=== PATIENT | male | born 1995 | race American Indian/Alaskan Native ===

== ENCOUNTER 2016-07-26 19:35 | Emergency (ER) | payer MEDICAID ==
[2016-07-26 20:56] LABS: Basophils % (Auto) 0.5 % (0.0-1.8); Eosinophils % (Auto) 0.8 % (0.0-4.3); Mean Corpuscular HGB Conc 31 % (32-34); Platelet Count 245 K/mm3 (140-440); Red Blood Count 5.97 M/mm3 (3.65-5.03); Red Cell Distribution Width 16.4 % (13.2-15.2); White Blood Count 7.8 K/mm3 (4.5-11.0)
[2016-07-26 21:03] LABS: Hematocrit 40.6 % (35.5-45.6); Hemoglobin 12.5 gm/dl (11.8-15.2); Mean Corpuscular Hemoglobin 21 pg (28-32); Mean Corpuscular Volume 68 fl (84-94)
[2016-07-26 21:13] LABS: Anion Gap 21 mmol/L; BUN/Creatinine Ratio 6.36; Blood Urea Nitrogen 7 mg/dL (9-20); Carbon Dioxide 25 mmol/L (22-30); Chloride 101.1 mmol/L (98-107); Glucose 96 mg/dL (75-100); Potassium 4.2 mmol/L (3.6-5.0); Sodium 143 mmol/L (137-145)
[2016-07-26 21:43] LABS: Urine Drugs of Abuse Note Disclamer
--- NOTE | 2016-07-26 21:49 | Emergency Department Report ---
ED Psych HPI - General Chief Complaint: Psych Stated Complaint: MH EVAL Source: EMS Mode of arrival: Ambulatory Limitations: Other (Autistic) - History of Present Illness Initial Comments: 20-year-old male with a past medical history autism, bipolar, and asthma presents to the hospital complains of increasingly aggressive behavior. Patient at the bedside with his grandfather reports that he is becoming more aggressive and combative over the past week. He also has been tearing up the house, hitting his caregiver and himself. Patient has been taking his medications without improvement. Was seen by his psychiatrist Dr. Sood several days ago and no change in his medications were recommended at that time. Patient unable to give any history of present illness himself due to his underlying mental delay - Related Data Home Medications Medication Instructions Recorded Confirmed Last Taken QUEtiapine [SEROquel] 200 mg PO QAM 05/12/13 07/26/16 02/18/14 QUEtiapine [Seroquel] 300 mg PO QHS 05/12/13 07/26/16 02/18/14 cloNIDine [Catapres] 0.1 mg PO DAILY 05/12/13 07/26/16 02/18/14 cloNIDine [Catapres] 0.2 mg PO QHS 05/12/13 07/26/16 02/18/14 [place] Carbonate [Eskalith] 450 mg PO BID 09/04/13 07/26/16 02/18/14 Benztropine [Cogentin] 0.5 mg PO QAM 07/26/16 07/26/16 Unknown Benztropine [Cogentin] 0.5 mg PO QPM 07/26/16 07/26/16 Unknown Diazepam 10 mg PO QAM 07/26/16 07/26/16 Unknown Diazepam 10 mg PO QHS 07/26/16 07/26/16 Unknown Diazepam 10 mg PO QPM 07/26/16 07/26/16 Unknown Olanzapine [ZyPREXA] 20 mg PO QHS 07/26/16 07/26/16 Unknown Olanzapine [ZyPREXA] 40 mg PO QAM 07/26/16 07/26/16 Unknown Allergies Allergy/AdvReac Type Severity Reaction Status Date / Time No Known Allergies Allergy Verified 02/19/14 05:15 ED Review of Systems ROS: Stated complaint: MH EVAL Other details as noted in HPI Comment: Unobtainable due to pts medical conditions ED Past Medical Hx - Past Medical History Hx Psychiatric Treatment: Yes (bipolar, autism) Hx Asthma: Yes Additional medical history: autistic - Surgical History Past Surgical History?: No - Social History Smoking Status: Never Smoker Substance Use Type: None - Medications Home Medications: Home Medications Medication Instructions Recorded Confirmed Last Taken Type QUEtiapine [SEROquel] 200 mg PO QAM 05/12/13 07/26/16 02/18/14 History QUEtiapine [Seroquel] 300 mg PO QHS 05/12/13 07/26/16 02/18/14 History cloNIDine [Catapres] 0.1 mg PO DAILY 05/12/13 07/26/16 02/18/14 History cloNIDine [Catapres] 0.2 mg PO QHS 05/12/13 07/26/16 02/18/14 History [place] Carbonate [Eskalith] 450 mg PO BID 09/04/13 07/26/16 02/18/14 History Benztropine [Cogentin] 0.5 mg PO QAM 07/26/16 07/26/16 Unknown History Benztropine [Cogentin] 0.5 mg PO QPM 07/26/16 07/26/16 Unknown History Diazepam 10 mg PO QAM 07/26/16 07/26/16 Unknown History Diazepam 10 mg PO QHS 07/26/16 07/26/16 Unknown History Diazepam 10 mg PO QPM 07/26/16 07/26/16 Unknown History Olanzapine [ZyPREXA] 20 mg PO QHS 07/26/16 07/26/16 Unknown History Olanzapine [ZyPREXA] 40 mg PO QAM 07/26/16 07/26/16 Unknown History ED Physical Exam - General Limitations: Other - Other Other exam information: General: No limitations, patient is alert in no acute distress Head exam: Atraumatic, normocephalic Eyes exam: Normal appearance ENT: Moist mucous membrane Neck exam: Normal inspection, full range of motion, no meningismus nontender Respiratory exam: Clear to auscultation bilateral, no wheezes, rales, crackles Cardiovascular: Normal rate and rhythm, normal heart sounds Abdomen: Soft, nondistended, and nontender, with normal bowel sounds, no rebound, or guarding Extremity: Full range of motion normal inspection no deformity Back: Normal Inspection, full range of motion, no tenderness Neurologic: Alert, o cranial nerves intact, no motor or sensory deficit Skin: Warm, dry, intact ED Course Vital Signs 07/26/16 20:25 Temperature 98.5 F Pulse Rate 80 Respiratory 18 Rate Blood Pressure 146/86 O2 Sat by Pulse 98 Oximetry - Consultations Consultation #1: 07/27/16 00:40 Mental health consult was ordered several hours ago and patient was evaluated by [facility] health specialist. 1013 signed since patient is not mentally stabilize for safe discharge home and exceeds the capabilities of his family and caretakers at this time. ED Medical Decision Making - Lab Data Result diagrams: 07/26/16 20:42 07/26/16 20:42 Lab Results 07/26/16 07/26/16 07/26/16 Range/Units 20:30 20:31 20:31 WBC (4.5-11.0) K/mm3 RBC (3.65-5.03) M/mm3 Hgb (11.8-15.2) gm/dl Hct (35.5-45.6) % MCV (84-94) fl MCH (28-32) pg MCHC (32-34) % RDW (13.2-15.2) % Plt Count (140-440) K/mm3 Lymph % (Auto) (13.4-35.0) % [place] % (Auto) (0.0-7.3) % Eos % (Auto) (0.0-4.3) % Baso % (Auto) (0.0-1.8) % Lymph # (1.2-5.4) K/mm3 [place] # (0.0-0.8) K/mm3 Eos # (0.0-0.4) K/mm3 Baso # (0.0-0.1) K/mm3 Seg Neutrophils % (40.0-70.0) % Seg Neutrophils # (1.8-7.7) K/mm3 Sodium (137-145) mmol/L Potassium (3.6-5.0) mmol/L Chloride (98-107) mmol/L Carbon Dioxide (22-30) mmol/L Anion Gap mmol/L BUN (9-20) mg/dL Creatinine (0.8-1.5) mg/dL Estimated GFR ml/min BUN/Creatinine Ratio % Glucose (75-100) mg/dL Calcium (8.4-10.2) mg/dL Urine Color Straw (Yellow) Urine Turbidity Clear (Clear) Urine pH 6.0 (5.0-7.0) Ur Specific [place] 1.006 (1.003-1.030) Urine Protein <15 mg/dl (Negative) mg/dL Urine Glucose (UA) Neg (Negative) mg/dL Urine Ketones Neg (Negative) mg/dL Urine Blood Neg (Negative) Urine Nitrite Neg (Negative) Urine Bilirubin Neg (Negative) Urine Urobilinogen < 2.0 (<2.0) mg/dL Ur Leukocyte Esterase Neg (Negative) Urine WBC (Auto) < 1.0 (0.0-6.0) /HPF Urine RBC (Auto) 4.0 (0.0-6.0) /HPF Urine Opiates Screen Presumptive negative Urine Methadone Screen Presumptive negative Ur Barbiturates Screen Presumptive negative Ur Phencyclidine Scrn Presumptive negative Ur Amphetamines Screen Presumptive negative U Benzodiazepines Scrn Presumptive negative [place] 2.6 H* (0.0-1.2) mmol/L Urine Cocaine Screen Presumptive negative U Marijuana (THC) Screen Presumptive negative Drugs of Abuse Note Disclamer Plasma/Serum Alcohol (0-0.07) gm% 07/26/16 07/26/16 07/26/16 Range/Units 20:42 20:42 20:42 WBC 7.8 (4.5-11.0) K/mm3 RBC 5.97 H (3.65-5.03) M/mm3 Hgb 12.5 (11.8-15.2) gm/dl Hct 40.6 (35.5-45.6) % MCV 68 L (84-94) fl MCH 21 L (28-32) pg MCHC 31 L (32-34) % RDW 16.4 H (13.2-15.2) % Plt Count 245 (140-440) K/mm3 Lymph % (Auto) 24.0 (13.4-35.0) % [place] % (Auto) 11.9 H (0.0-7.3) % Eos % (Auto) 0.8 (0.0-4.3) % Baso % (Auto) 0.5 (0.0-1.8) % Lymph # 1.9 (1.2-5.4) K/mm3 [place] # 0.9 H (0.0-0.8) K/mm3 Eos # 0.1 (0.0-0.4) K/mm3 Baso # 0.0 (0.0-0.1) K/mm3 Seg Neutrophils % 62.8 (40.0-70.0) % Seg Neutrophils # 4.9 (1.8-7.7) K/mm3 Sodium 143 (137-145) mmol/L Potassium 4.2 (3.6-5.0) mmol/L Chloride 101.1 (98-107) mmol/L Carbon Dioxide 25 (22-30) mmol/L Anion Gap 21 mmol/L BUN 7 L (9-20) mg/dL Creatinine 1.1 (0.8-1.5) mg/dL Estimated GFR > 60 ml/min BUN/Creatinine Ratio 6.36 % Glucose 96 (75-100) mg/dL Calcium 10.0 (8.4-10.2) mg/dL Urine Color (Yellow) Urine Turbidity (Clear) Urine pH (5.0-7.0) Ur Specific [place] (1.003-1.030) Urine Protein (Negative) mg/dL Urine Glucose (UA) (Negative) mg/dL Urine Ketones (Negative) mg/dL Urine Blood (Negative) Urine Nitrite (Negative) Urine Bilirubin (Negative) Urine Urobilinogen (<2.0) mg/dL Ur Leukocyte Esterase (Negative) Urine WBC (Auto) (0.0-6.0) /HPF Urine RBC (Auto) (0.0-6.0) /HPF Urine Opiates Screen Urine Methadone Screen Ur Barbiturates Screen Ur Phencyclidine Scrn Ur Amphetamines Screen U Benzodiazepines Scrn [place] (0.0-1.2) mmol/L Urine Cocaine Screen U Marijuana (THC) Screen Drugs of Abuse Note Plasma/Serum Alcohol < 0.01 (0-0.07) gm% - Medical Decision Making Plan to continue patient's current psychiatric medications. 1013 and transfer forms have been signed. Patient is from psychiatric stabilization before he can be returned home. Awaiting acceptance and transfer. [place] level is above therapeutic range. I will hold this medication at this time. Level would need to be repeated and Lithia resumes once below the toxic level. Repeat level has been ordered for the next 2 days. - Differential Diagnosis behavior disorder, autism, bipolar, psychosis Critical Care Time: No Critical care attestation.: If time is entered above; I have spent that time in minutes in the direct care of this critically ill patient, excluding procedure time. ED Disposition Clinical Impression: Medical clearance for psychiatric admission, Autism, Bipolar disorder, Behavior disturbance, Elevated lithium level Disposition: DC/TX PSY HOSP/PSY UNIT Is pt being admited?: No Does the pt Need Aspirin: No Condition: Stable Time of Disposition: 00:49 (awaiting acceptance)
[2016-07-26 21:52] LABS: Bilirubin,Urine NEG (Negative); Blood,Urine NEG (Negative); Ketones,Urine NEG (Negative); Leukocyte Esterase,Urine NEG (Negative); Nitrite,Urine NEG (Negative); Protein,Urine <15 mg/dL mg/dL (Negative); Urobilinogen,Urine < 2.0 mg/dL (<2.0); WBC,Urine < 1.0 /HPF (0.0-6.0)
[2016-07-26] MEDS ORDERED: VALIUM PO ONE (23:04)
[2016-07-26] MEDS ORDERED: CATAPRES PO ONE (23:06)
[2016-07-27] MEDS ORDERED: TYLENOL PO PRN (01:00)
[2016-07-27] MEDS ORDERED: ALUM-MAG HYDROX-SIMETH 200-200-20MG/5ML PO PRN (01:00)
[2016-07-27] MEDS ORDERED: MILK OF MAGNESIA PO PRN (01:00)
--- NOTE | 2016-07-27 09:20 | Consultation ---
History of Present Illness - Reason for Consult Consult date: 07/27/16 Reason for consult: Mental Health Evaluation Requesting physician: KYRA SHAFFER - Chief Complaint Chief complaint: "I don't know" - History of Present Psychiatric Illness 20-year-old male with a past medical history autism, bipolar, and asthma presents to the hospital complains of increasingly aggressive behavior. Today patient is calm, but repeat my questions back to me when asked. He was sitting on the stretcher bed eating his breakfast during my assessment. Per the RN notes , patient had no behavioral issues overnight. No gestures of SI/HI's. Patient is a poor historian. ER Note 07/27/2016 - 20-year-old male with a past medical history autism, bipolar , and asthma presents to the hospital complains of increasingly aggressive behavior. Patient at the bedside with his grandfather reports that he is becoming more aggressive and combative over the past week. He also has been tearing up the house, hitting his caregiver and himself. Patient has been taking his medications without improvement. Was seen by his psychiatrist Dr. Sood several days ago and no change in his medications were recommended at that time. Patient unable to give any history of present illness himself due to his underlying mental delay Medications and Allergies Allergies Allergy/AdvReac Type Severity Reaction Status Date / Time No Known Allergies Allergy Verified 02/19/14 05:15 Home Medications Medication Instructions Recorded Confirmed Last Taken Type QUEtiapine [SEROquel] 200 mg PO QAM 05/12/13 07/26/16 02/18/14 History QUEtiapine [Seroquel] 300 mg PO QHS 05/12/13 07/26/16 02/18/14 History cloNIDine [Catapres] 0.1 mg PO DAILY 05/12/13 07/26/16 02/18/14 History cloNIDine [Catapres] 0.2 mg PO QHS 05/12/13 07/26/16 02/18/14 History [place] Carbonate [Eskalith] 450 mg PO BID 09/04/13 07/26/16 02/18/14 History Benztropine [Cogentin] 0.5 mg PO QAM 07/26/16 07/26/16 Unknown History Benztropine [Cogentin] 0.5 mg PO QPM 07/26/16 07/26/16 Unknown History Diazepam 10 mg PO QAM 07/26/16 07/26/16 Unknown History Diazepam 10 mg PO QHS 07/26/16 07/26/16 Unknown History Diazepam 10 mg PO QPM 07/26/16 07/26/16 Unknown History Olanzapine [ZyPREXA] 20 mg PO QHS 07/26/16 07/26/16 Unknown History Olanzapine [ZyPREXA] 40 mg PO QAM 07/26/16 07/26/16 Unknown History Active Meds: Active Medications Acetaminophen (Tylenol) 650 mg PO Q4HR PRN PRN Reason: Pain MILD(1-3)/Fever >100.5/HAHN Al Hydrox/Mg Hydrox/Simethicone (Alum-Mag Hydrox-Simeth 884-322-34ul/5ml) 30 ml PO Q4HR PRN PRN Reason: Indigestion Clonidine HCl (Catapres) 0.2 mg PO QHS GREG Diazepam (Valium) 10 mg PO QPM GREG Magnesium Hydroxide (Milk Of Magnesia) 30 ml PO Q12HR PRN PRN Reason: Constipation Olanzapine (Zyprexa) 10 mg PO HS GREG Quetiapine Fumarate (Seroquel) 300 mg PO QHS GREG Past psychiatric history - Past Medical History Past Medical History: other (Autistic) Past Surgical History: No surgical history - past Psychiatric treatment and history Psych: Bipolar psychiatric treatment history: Unable to obtain from patient. Unable to obtain fam psy hx from patient. - Social History Social history: lives with family Mental Status Exam - Vital signs Last Vital Signs Temp 98.5 F 07/26/16 20:25 Pulse 80 07/26/16 20:25 Resp 18 07/26/16 20:25 BP 146/86 07/26/16 20:25 Pulse Ox 98 07/26/16 20:25 - Exam Narrative exam: ROS: (-) psychosis MSE: Appearance: calm Behavior: poor eye contact Speech: regular rate and tone Mood: unable to assess Affect: flat Thought Process: unable to assess Thought Content: no gestures of SI/HI's and AVH's Motor Activity: sitting on bed Cognition: unable to assess Insight: limited Judgment: limited Results Result Diagrams: 07/26/16 20:42 07/26/16 20:42 Abnormal lab results 07/26/16 07/26/16 07/26/16 Range/Units 20:30 20:42 20:42 RBC 5.97 H (3.65-5.03) M/mm3 MCV 68 L (84-94) fl MCH 21 L (28-32) pg MCHC 31 L (32-34) % RDW 16.4 H (13.2-15.2) % [place] % (Auto) 11.9 H (0.0-7.3) % [place] # 0.9 H (0.0-0.8) K/mm3 BUN 7 L (9-20) mg/dL [place] 2.6 H* (0.0-1.2) mmol/L All other labs normal. Assessment and Plan Assessment and plan: Impression: Unspecified Mood DO. 20-year-old male with a past medical history autism, bipolar, and asthma presents to the hospital complains of increasingly aggressive behavior. Today patient is calm, but repeat my questions back to me when asked. He was sitting on the stretcher bed eating his breakfast during my assessment. Last [place] level 2.6 next scheduled lithium serum is tomorrow at 1000. No gestures of SI/HI's and AVH's. DD: R/O Bipolar Recommendation/Plan: Evaluate 1013 in 24 hours and gather more collateral information from grandmother. Monitor for lithium toxicity symptoms (N/V, diarrhea, muscle weakness/stiffness, fever, seizures, and tremors). Neuro checks Q4hrs. Modified psy mediations. [place] serum 07/28.
[2016-07-27] MEDS ORDERED: CATAPRES PO SCH (10:00)
[2016-07-27] MEDS ORDERED: NON-FORMULARY (Diazepam [Diazepam] 10 MG) PO SCH ×3 (10:00→22:00)
[2016-07-27] MEDS ORDERED: OLANZAPINE 40 MG PO SCH (10:00)
[2016-07-27] MEDS ORDERED: ESKALITH PO SCH (10:00)
[2016-07-27] MEDS ORDERED: VALIUM PO SCH ×3 (10:00→22:00)
[2016-07-27] MEDS ORDERED: NON-FORMULARY (Olanzapine [Zyprexa] 20 MG) PO SCH (13:00)
[2016-07-27] MEDS ORDERED: ATIVAN IM ONE (21:16)
[2016-07-27] MEDS ORDERED: HALDOL ONE (21:16)
[2016-07-27] MEDS ORDERED: ATIVAN ONE (21:16)
[2016-07-28] MEDS ORDERED: BENADRYL ONE (02:42)
[2016-07-28] MEDS ORDERED: HALDOL ONE ×2 (02:44→14:49)
[2016-07-28] MEDS ORDERED: ATIVAN ONE (02:45)
[2016-07-28] MEDS ORDERED: ATIVAN IV ONE (02:45)
[2016-07-28] MEDS ORDERED: BENADRYL IM ONE (03:56)
[2016-07-28] MEDS ORDERED: HALDOL IM ONE ×2 (03:57→14:48)
[2016-07-28] MEDS ORDERED: ATIVAN IV NR (04:00)
--- NOTE | 2016-07-28 09:00 | Progress Note ---
Subjective - Reason for Consult Consult date: 07/28/16 Reason for consult: Psychiatry Follow-up - Chief Complaint Chief complaint: "I don't know" 20-year-old male with a past medical history autism, bipolar, and asthma presents to the hospital complaining of increasingly aggressive behavior. Today patient is still repeating my questions (echolalia) when asked. Per the RN notes , patient was observed eating his feces overnight. Per his grandmother Juana [phone] stated that her grandson was aggressive at home (fighting) and was brought to [facility]. The patient see Dr. Sood at [facility]. No gestures of SI/HI's and AVH's. Mental Status Exam - Vital signs Last Vital Signs Temp 98 F 07/27/16 10:00 Pulse 71 07/28/16 06:27 Resp 18 07/28/16 06:27 BP 115/60 07/28/16 06:27 Pulse Ox 98 07/28/16 06:27 - Exam Narrative exam: MSE: Appearance: calm Behavior: poor eye contact Speech: regular rate and tone Mood: unable to assess Affect: flat Thought Process: unable to assess Thought Content: no gestures of SI/HI's and AVH's Motor Activity: sitting on bed Cognition: unable to assess Insight: limited Judgment: limited Assessment and Plan Impression: Unspecified Mood DO with psychotic features. 20-year-old male with a past medical history autism, bipolar, and asthma presents to the hospital complaining of increasingly aggressive behavior. Today patient is still repeating my questions (echolalia) when asked. Per the RN notes, patient was observed eating his feces overnight. Patient is currently in restraints. Psy medications were not given last night. Recommendation/Plan: Evaluate 1013 in 24 hours to determine proper dispo. Attempt to administer PO psy medications as ordered. Remove restraints when indicated.
[2016-07-28] MEDS: VALIUM PO SCH (22:35)
[2016-07-28] MEDS: COGENTIN PO SCH (22:45)
[2016-07-28] MEDS: CATAPRES PO SCH (22:52)
--- NOTE | 2016-07-29 13:50 | Progress Note ---
Subjective - Reason for Consult Consult date: 07/29/16 Reason for consult: psychiatric follow up - Chief Complaint Chief complaint: "Hi" 20-year-old male with a past medical history autism, bipolar, and asthma presents to the hospital complaining of increasingly aggressive behavior. Today patient is still repeating my questions (echolalia) when asked. Grandmother reports feeling unsafe due to the patient's recent and likely continued aggressive behavior. He was out of his room naked this morning. She wants his medications addressed. He recently started Valium and Zyprexa in April. He does not have a current prescription and this was reported to be an oversight by his psychiatrist according to his grandmother. He starts a summer program next week and has been looking forward to it but is greatly affected by two abrupt changes within 1-2 days. He finished the school year and his grandmother had emergency surgery. Mental Status Exam - Vital signs Last Vital Signs Temp 97.8 F 07/29/16 08:52 Pulse 85 07/29/16 08:52 Resp 18 07/29/16 08:52 BP 143/83 07/29/16 08:52 Pulse Ox 99 07/29/16 08:52 - Exam Narrative exam: Narrative exam: MSE: Appearance: calm Behavior: poor eye contact Speech: echolalia Mood: unable to assess Affect: flat Thought Process: unable to assess Thought Content: no gestures of SI/HI's and AVH's Motor Activity: sitting on bed Cognition: unable to assess Insight: limited Judgment: limited impulsive behavior Assessment and Plan Impression: Unspecified Mood DO with psychotic features. 20-year-old male with a past medical history autism, bipolar, and asthma presents to the hospital complaining of increasingly aggressive behavior. Recommendation/Plan: Continue 1013 for concerns with safety to others and himself. Attempt to administer PO psy medications as ordered. Remove restraints when indicated. Reorient patient to his surroundings often and keep a routine as much as possible regarding meals, visitors, sleep, and bathroom time.
[2016-07-29] MEDS: CATAPRES PO SCH (22:25)
[2016-07-29] MEDS: COGENTIN PO SCH (22:32)
[2016-07-29] MEDS: VALIUM PO SCH (22:32)
[2016-07-29] MEDS ORDERED: ATIVAN IM ONE (23:22)
--- NOTE | 2016-07-30 11:12 | Progress Note ---
Subjective - Reason for Consult Consult date: 07/30/16 Reason for consult: Psychiatry Follow-up - Chief Complaint Chief complaint: "Hello" 20-year-old male with a past medical history autism, bipolar, and asthma presents to the hospital complaining of increasingly aggressive behavior. Today patient is in the hallway being observed by security and currently not in restraints. I spoke with his grandmother and she stated that he can return home if his behavior has changed. She is concerned about his medication regimen. No gestures of SI/HI's and AVH's. No prn medication given for agitation or physical aggression overnight. Mental Status Exam - Vital signs Last Vital Signs Temp 98.4 F 07/29/16 22:22 Pulse 53 L 07/29/16 22:22 Resp 18 07/30/16 08:19 BP 129/73 07/29/16 22:25 Pulse Ox 99 07/30/16 08:19 - Exam Narrative exam: MSE: Appearance: calm Behavior: poor eye contact, patient can be impulsive Speech: echolalia Mood: unable to assess Affect: flat Thought Process: unable to assess Thought Content: no gestures of SI/HI's and AVH's Motor Activity: sitting on bed Cognition: unable to assess Insight: limited Judgment: limited Assessment and Plan Impression: Unspecified Mood DO with psychotic features. 20-year-old male with a past medical history autism, bipolar, and asthma presents to the hospital complaining of increasingly aggressive behavior. Today patient is in the hallway being observed by security and currently not in restraints. I spoke with his grandmother and she stated that he can return home if his behavior has changed. lithium 0.2 07/29. Recommendation/Plan: Evaluate 1013 in 24 hours. Attempt to administer PO psy medications as ordered. Remove restraints when indicated. Reorient patient to his surroundings often and keep a routine as much as possible regarding meals, visitors, sleep, and bathroom time. Patient suppose to start summer camp next.
[2016-07-30] MEDS ORDERED: HALDOL IM ONE (17:55)
[2016-07-30] MEDS: VALIUM PO SCH (22:23)
[2016-07-30] MEDS: CATAPRES PO SCH (22:23)
[2016-07-30] MEDS: COGENTIN PO SCH (22:23)
--- NOTE | 2016-07-31 10:46 | Progress Note ---
Subjective - Reason for Consult Consult date: 07/31/16 Reason for consult: Psychiatry Follow-up - Chief Complaint Chief complaint: "Hi" 20-year-old male with a past medical history autism, bipolar, and asthma presents to the hospital complaining of increasingly aggressive behavior. Today patient is calm and not saying much today. Per the RN note, patient had no behavioral issues overnight. Patient took his medications last night and no gestures of SI/HI's and AVH's. Mental Status Exam - Vital signs Last Vital Signs Temp 98 F 07/30/16 21:00 Pulse 88 07/30/16 22:23 Resp 16 07/30/16 21:00 BP 142/88 07/30/16 22:23 Pulse Ox 99 07/30/16 21:00 - Exam Narrative exam: MSE: Appearance: calm Behavior: poor eye contact, patient can be impulsive Speech: echolalia Mood: unable to assess Affect: flat Thought Process: unable to assess Thought Content: no gestures of SI/HI's and AVH's Motor Activity: sitting on bed Cognition: unable to assess Insight: limited Judgment: limited Assessment and Plan Impression: Unspecified Mood DO with psychotic features. 20-year-old male with a past medical history autism, bipolar, and asthma presents to the hospital complaining of increasingly aggressive behavior. 20-year-old male with a past medical history autism, bipolar, and asthma presents to the hospital complaining of increasingly aggressive behavior. Today patient is calm and not saying much today. Per the RN note, patient had no behavioral issues overnight. Grandmother will pecan picker patient Natividad Hines [phone]. Recommendation/Plan: Rescind 1013. Patient can follow-up with his psychiatrist. Continue current medication regimen.
[2016-07-31 12:10] VITALS: BP 138/78
--- NOTE | 2016-07-31 12:40 | Emergency Department Report ---
Blank Doc - Documentation Documentation: Patient has been reevaluated by mental health. Recommendation is to rescind the 1013. Patient will be discharged home at this time to follow up with his outpatient psychiatrist.
== END 2016-07-31 15:28 | disposition home or self-care (01) ==
LOC: ED 19:35 → EEVIPCON 19:35 → ED 07-31 15:28
DX: F31.9 Bipolar disorder, unspecified (principal); F91.9 Conduct disorder, unspecified; F84.0 Autistic disorder; R78.89 Finding of other specified substances, not normally found in blood; J45.909 Unspecified asthma, uncomplicated
CPT/HCPCS: 36415; 80048; 80178; 80307; 81001; 82550; 85025; 96372; 99284; G0480; J1200; J1630; J2060; 80320

== ENCOUNTER 2016-08-15 19:43 | Emergency (ER) | payer MEDICAID ==
[2016-08-15] MEDS ORDERED: HALDOL ONE (19:56)
[2016-08-15] MEDS ORDERED: HALDOL IM ONE (20:06)
--- NOTE | 2016-08-15 20:08 | Emergency Department Report ---
ED Psych HPI - General Chief Complaint: Psych Stated Complaint: 1013 Time Seen by Provider: 08/15/16 20:04 Source: family Mode of arrival: Ambulatory Limitations: Other (autistic) - History of Present Illness -: Sudden (today; here < 1 m ago) Context: other (lives w grandmother who gives him his meds; she says he is taking them; denies that he could have gotten drugs) Treatments Prior to Arrival: none If Self Harm: other (attacking family; psychosis today) - Related Data Home Medications Medication Instructions Recorded Confirmed Last Taken QUEtiapine [SEROquel] 200 mg PO QAM 05/12/13 07/26/16 02/18/14 QUEtiapine [Seroquel] 300 mg PO QHS 05/12/13 07/26/16 02/18/14 cloNIDine [Catapres] 0.1 mg PO DAILY 05/12/13 07/26/16 02/18/14 cloNIDine [Catapres] 0.2 mg PO QHS 05/12/13 07/26/16 02/18/14 [place] Carbonate [Eskalith] 450 mg PO BID 09/04/13 07/26/16 02/18/14 Benztropine [Cogentin] 0.5 mg PO QAM 07/26/16 07/26/16 Unknown Benztropine [Cogentin] 0.5 mg PO QPM 07/26/16 07/26/16 Unknown Diazepam 10 mg PO QAM 07/26/16 07/26/16 Unknown Diazepam 10 mg PO QHS 07/26/16 07/26/16 Unknown Diazepam 10 mg PO QPM 07/26/16 07/26/16 Unknown Olanzapine [ZyPREXA] 20 mg PO QHS 07/26/16 07/26/16 Unknown Olanzapine [ZyPREXA] 40 mg PO QAM 07/26/16 07/26/16 Unknown Allergies Allergy/AdvReac Type Severity Reaction Status Date / Time No Known Allergies Allergy Verified 02/19/14 05:15 ED Review of Systems ROS: Stated complaint: 1013 Other details as noted in HPI Comment: All other systems reviewed and negative Constitutional: no symptoms reported Eyes: as per HPI ENT: as per HPI Respiratory: no symptoms reported Cardiovascular: as per HPI Endocrine: no symptoms reported Gastrointestinal: as per HPI Genitourinary: as per HPI Musculoskeletal: as per HPI Skin: as per HPI Neurological: as per HPI Psychiatric: anxiety Hematological/Lymphatic: as per HPI ED Past Medical Hx - Past Medical History Previous Medical History?: Yes Hx Hypertension: No Hx CVA: No Hx Heart Attack/AMI: No Hx Congestive Heart Failure: No Hx Diabetes: No Hx Deep Vein Thrombosis: No Hx Pulmonary Embolism: No Hx GERD: No Hx Liver Disease: No Hx Renal Disease: No Hx of Cancer: No Hx Sickle Cell Disease: No Hx Arthritis: No Hx Headaches / Migraines: No Hx Seizures: No Hx Kidney Stones: No Hx Psychiatric Treatment: Yes (bipolar, autism) Hx Asthma: Yes Hx COPD: No Hx Tuberculosis: No Hx Dementia: No Hx HIV: No Additional medical history: autistic - Surgical History Past Surgical History?: No - Social History Smoking Status: Never Smoker Substance Use Type: None - Medications Home Medications: Home Medications Medication Instructions Recorded Confirmed Last Taken Type QUEtiapine [SEROquel] 200 mg PO QAM 05/12/13 07/26/16 02/18/14 History QUEtiapine [Seroquel] 300 mg PO QHS 05/12/13 07/26/16 02/18/14 History cloNIDine [Catapres] 0.1 mg PO DAILY 05/12/13 07/26/16 02/18/14 History cloNIDine [Catapres] 0.2 mg PO QHS 05/12/13 07/26/16 02/18/14 History [place] Carbonate [Eskalith] 450 mg PO BID 09/04/13 07/26/16 02/18/14 History Benztropine [Cogentin] 0.5 mg PO QAM 07/26/16 07/26/16 Unknown History Benztropine [Cogentin] 0.5 mg PO QPM 07/26/16 07/26/16 Unknown History Diazepam 10 mg PO QAM 07/26/16 07/26/16 Unknown History Diazepam 10 mg PO QHS 07/26/16 07/26/16 Unknown History Diazepam 10 mg PO QPM 07/26/16 07/26/16 Unknown History Olanzapine [ZyPREXA] 20 mg PO QHS 07/26/16 07/26/16 Unknown History Olanzapine [ZyPREXA] 40 mg PO QAM 07/26/16 07/26/16 Unknown History ED Physical Exam - General Limitations: Altered Mental Status General appearance: anxious - Head Head exam: Present: atraumatic - Eye Eye exam: Present: normal appearance - ENT ENT exam: Present: mucous membranes moist - Neck Neck exam: Present: normal inspection - Respiratory Respiratory exam: Present: normal lung sounds bilaterally - Cardiovascular Cardiovascular Exam: Present: regular rate - GI/Abdominal GI/Abdominal exam: Present: soft - Rectal Rectal exam: Present: deferred - Extremities Exam Extremities exam: Present: normal inspection - Back Exam Back exam: Present: normal inspection - Neurological Exam Neurological exam: Present: alert, CN II-XII intact, other (psychosis and combative, onset today. ) - Psychiatric Psychiatric exam: Present: agitated, anxious. Absent: normal affect, normal mood, depressed, flat affect, manic - Skin Skin exam: Present: warm, dry, intact, normal color. Absent: rash ED Course - Reevaluation(s) Reevaluation #1: 08/15/16 20:24 lives w grandparents meds monitored no drugs per fam combative today hitting family fighting on admit to er. medicated per Dr. Kendrick medical clearance and psych consult Pt Dr. Villela Reevaluation #2: 08/16/16 01:32 vss resting quietly ns infusing urine p plan recheck labs mhe eval w placement ED Medical Decision Making - Lab Data Result diagrams: 08/15/16 19:59 08/15/16 19:59 - Medical Decision Making labs noted monitored by grandparents they give him his meds no missed doses no drug hx no trauma vss nad Critical care attestation.: If time is entered above; I have spent that time in minutes in the direct care of this critically ill patient, excluding procedure time. ED Disposition Clinical Impression: Autism, Psychosis Disposition: DC/TX-65 PSY HOSP/PSY UNIT Is pt being admited?: No Does the pt Need Aspirin: No Condition: Stable
[2016-08-15 20:33] LABS: Basophils % (Auto) 0.6 % (0.0-1.8); Hematocrit 37.1 % (35.5-45.6); Hemoglobin 11.5 gm/dl (11.8-15.2); Mean Corpuscular HGB Conc 31 % (32-34); Platelet Count 207 K/mm3 (140-440); Red Blood Count 5.54 M/mm3 (3.65-5.03); Red Cell Distribution Width 16.3 % (13.2-15.2); White Blood Count 6.8 K/mm3 (4.5-11.0)
[2016-08-15 20:34] LABS: Mean Corpuscular Hemoglobin 21 pg (28-32); Mean Corpuscular Volume 67 fl (84-94)
[2016-08-15 20:53] LABS: BUN/Creatinine Ratio 6.36; Blood Urea Nitrogen 7 mg/dL (9-20); Calcium 9.2 mg/dL (8.4-10.2); Carbon Dioxide 23 mmol/L (22-30); Glucose 154 mg/dL (75-100)
[2016-08-15 20:54] LABS: Anion Gap 16 mmol/L; Chloride 103.4 mmol/L (98-107); Potassium 3.7 mmol/L (3.6-5.0); Sodium 139 mmol/L (137-145)
[2016-08-15 20:56] LABS: Alanine Aminotransferase 12 units/L (7-56); Albumin 4.1 g/dL (3.9-5); Albumin/Globulin Ratio 1.7 %; Alkaline Phosphatase 93 units/L (35-129); Total Protein 6.5 g/dL (6.3-8.2)
[2016-08-15] MEDS ORDERED: NACL 0.9% 1000 ML 1,000 ML IV ONE (20:56)
[2016-08-15 21:00] LABS: Bilirubin,Direct < 0.2 mg/dL (0-0.2); Bilirubin,Indirect 0.1 mg/dL
[2016-08-16 02:17] LABS: Urine Drugs of Abuse Note Disclamer
[2016-08-16 02:26] LABS: Bacteria,Urine 1+ /HPF (Negative); Bilirubin,Urine NEG (Negative); Blood,Urine NEG (Negative); Ketones,Urine NEG (Negative); Leukocyte Esterase,Urine NEG (Negative); Nitrite,Urine NEG (Negative); Protein,Urine <15 mg/dL mg/dL (Negative); RBC,Urine < 1.0 /HPF (0.0-6.0); Urobilinogen,Urine < 2.0 mg/dL (<2.0); WBC,Urine < 1.0 /HPF (0.0-6.0)
[2016-08-16 02:53] LABS: Anion Gap 14 mmol/L; BUN/Creatinine Ratio 7.77; Blood Urea Nitrogen 7 mg/dL (9-20); Carbon Dioxide 24 mmol/L (22-30); Chloride 107.2 mmol/L (98-107); Creatine Kinase 299 units/L (55-170); Glucose 118 mg/dL (75-100); Potassium 3.7 mmol/L (3.6-5.0); Sodium 141 mmol/L (137-145)
--- NOTE | 2016-08-16 13:00 | Consultation ---
History of Present Illness - Reason for Consult Consult date: 08/16/16 Reason for consult: aggression Medications and Allergies Allergies Allergy/AdvReac Type Severity Reaction Status Date / Time No Known Allergies Allergy Verified 02/19/14 05:15 Home Medications Medication Instructions Recorded Confirmed Last Taken Type QUEtiapine [SEROquel] 200 mg PO QAM 05/12/13 08/16/16 02/18/14 History QUEtiapine [Seroquel] 300 mg PO QHS 05/12/13 08/16/16 02/18/14 History cloNIDine [Catapres] 0.1 mg PO DAILY 05/12/13 08/16/16 02/18/14 History cloNIDine [Catapres] 0.2 mg PO QHS 05/12/13 08/16/16 02/18/14 History [place] Carbonate [Eskalith] 450 mg PO BID 09/04/13 08/16/16 02/18/14 History Benztropine [Cogentin] 0.5 mg PO QAM 07/26/16 08/16/16 Unknown History Benztropine [Cogentin] 0.5 mg PO QPM 07/26/16 08/16/16 Unknown History Diazepam 10 mg PO QAM 07/26/16 08/16/16 Unknown History Diazepam 10 mg PO QHS 07/26/16 08/16/16 Unknown History Diazepam 10 mg PO QPM 07/26/16 08/16/16 Unknown History Olanzapine [ZyPREXA] 20 mg PO QHS 07/26/16 08/16/16 Unknown History Olanzapine [ZyPREXA] 40 mg PO QAM 07/26/16 08/16/16 Unknown History Active Meds: Active Medications Clonidine HCl (Catapres) 0.1 mg PO DAILY [facility] Stop: 08/20/16 09:59 Clonidine HCl (Catapres) 0.2 mg PO HS [facility] Stop: 08/20/16 21:59 Quetiapine Fumarate (Seroquel) 300 mg PO QHS [facility] Stop: 08/20/16 21:59 Quetiapine Fumarate (Seroquel) 200 mg PO DAILY [facility] Mental Status Exam - Vital signs Last Vital Signs Temp 98.7 F 08/16/16 09:19 Pulse 63 08/16/16 09:19 Resp 16 08/16/16 09:21 BP 120/70 08/16/16 09:19 Pulse Ox 100 08/16/16 09:21 Results Result Diagrams: 08/15/16 19:59 08/16/16 02:18 Abnormal lab results 08/15/16 08/15/16 08/15/16 Range/Units 19:59 19:59 20:17 RBC 5.54 H (3.65-5.03) M/mm3 Hgb 11.5 L (11.8-15.2) gm/dl MCV 67 L (84-94) fl MCH 21 L (28-32) pg MCHC 31 L (32-34) % RDW 16.3 H (13.2-15.2) % Butts % (Auto) 7.6 H (0.0-7.3) % Seg Neutrophils % 72.6 H (40.0-70.0) % Chloride (98-107) mmol/L BUN 7 L (9-20) mg/dL Glucose 154 H (75-100) mg/dL Total Creatine Kinase 332 H (55-170) units/L 08/16/16 Range/Units 02:18 RBC (3.65-5.03) M/mm3 Hgb (11.8-15.2) gm/dl MCV (84-94) fl MCH (28-32) pg MCHC (32-34) % RDW (13.2-15.2) % Butts % (Auto) (0.0-7.3) % Seg Neutrophils % (40.0-70.0) % Chloride 107.2 H (98-107) mmol/L BUN 7 L (9-20) mg/dL Glucose 118 H (75-100) mg/dL Total Creatine Kinase 299 H (55-170) units/L All other labs normal. Assessment and Plan Assessment and plan: CHIEF COMPLAINT IN PATIENTS WORDS: HISTORY OF PRESENT ILLNESS REQUIRING ADMISSION TO INPATIENT LEVEL OF CARE: (Describe the onset of Illness, Intensity of Symptoms, and Circumstances Leading to Admission) This is a 20 year-old domiciled male with past psychiatric history of autism spectrum disorder who now presents to the ER after recent aggression towards his family. Patient was last seen in the ER several weeks ago due to reported lithium toxicity. He was here for several days while his lithium level was normalized. On review of medical records to his lithium level was 0.7. Patient is mostly nonverbal and was unable to provide any information during this assessment. All information was gathered from review of medical record and past medical records. On examination, patient is in hospital gown and disengaged with the interviewer. He was sitting on the stretcher during my examination today. PSYCHIATRIC REVIEW OF SYSTEMS: Substance: None noted Depression: Unable to obtain [place]: Unable to obtain Psychosis: Unable to obtain Anxiety/ OCD/ PTSD: Unable to obtain Suicidality: Unable to obtain Other Self-Injurious Behavior: Unable to obtain Violent/ Aggressive Behavior: Recently became aggressive towards family CURRENT MEDICATIONS: ( Psychiatric and Non-psychiatric ) Seroquel Ensign ALLERGIES: NKDA PAST PSYCHIATRIC HISTORY: ( Prior Treatment, Precipitating Factors, Diagnosis, and Course of Treatment ) Sees outpatient psychiatrist Dr. Sood PAST PSYCHIATRIC MEDICATION TRIALS: Ensign MEDICAL HISTORY: (Chronic and Acute Illnesses, Current Medical Treatment, Recent Hospitalizations) Unable to obtain HISTORY OF TRAUMA/ABUSE: Unable to obtain DRUG / ALCOHOL ABUSE HISTORY: as above Detoxification / Withdrawal: None noted SOCIAL HISTORY: (Educational Level, Employment, Support System, Interpersonal Relationships) Lives with grandmother FAMILY HISTORY: Psychiatric/Substance Abuse MENTAL STATUS EXAM: General Appearance: In hospital gown and no acute distress Sensorium/Consciousness: Clear Eye Contact: Variable Attitude / Behavior: Uncooperative Psychomotor & Musculoskeletal Activity: Appears restless Mood: Unable to obtain Affect: Unable to obtain Speech / Language: Unable to obtain Thought Processes: Unable to obtain Thought Content: Unable to obtain Perception: Unable to obtain Orientation: Unable to obtain Judgment What would you do if you smelled smoke in a crowded movie theater?: poor/impulsive Insight: poor Intelligence Vocabulary, general fund of knowledge, educational level :Unable to obtain Capacity of ADLs: Unable to assess STRENGTHS: PSYCHOSOCIAL AND ENVIRONMENTAL STRESSORS: Diagnosed with a developmental disorder limiting his ability to engage in socially appropriate ways with his family ADMITTING DIAGNOSES Psychiatric Autism spectrum disorder Evidence for the following: Rule out major depression Rule out bipolar disorder Medical: n/a INITIAL PLAN OF CARE AND TREATMENT GOALS: Reconcile home meds and restart them Observe in the ER and obtain collateral information from primary caregivers Reassess tomorrow
[2016-08-16] MEDS: CATAPRES PO SCH (14:10)
[2016-08-16] MEDS ORDERED: CATAPRES PO SCH (22:00)
[2016-08-17 07:52] VITALS: BP 121/68
[2016-08-17] MEDS: CATAPRES PO SCH (10:29)
--- NOTE | 2016-08-17 13:12 | Emergency Department Report ---
Blank Doc - Documentation Documentation: Patient has been reevaluated by psychiatry. He appears to be at his baseline after restarting his medications. Form 1013 has been rescinded. Patient is to be discharged home at this time to follow up with his outpatient psychiatrist.
--- NOTE | 2016-08-17 14:09 | Progress Note ---
Subjective - Reason for Consult Reason for consult: recent aggression Mental Status Exam - Vital signs Last Vital Signs Temp 99.0 F 08/16/16 22:00 Pulse 56 L 08/17/16 07:51 Resp 18 08/17/16 07:51 BP 121/68 08/17/16 07:51 Pulse Ox 99 08/16/16 22:00 Assessment and Plan On clinical examination today, patient remains fairly nonverbal but calm and cooperative to redirection per nursing instructions. Patient has not been acutely agitated in our milieu. It is unclear the etiology of his aggression while he was at home; however, this has not been his presentation the hospital. Patient is on several mood stabilizers notably Seroquel and lithium. His last dose of lithium is unknown; however, his lithium level is currently normal. It is the recommendation that patient should continue his Seroquel as well as his lithium upon discharge. 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 Consequently, given the fact that is the impression at the neuro developmental component of his illness is responsible for the impulsive aggression patient does not meet criteria for involuntary psychiatric hold because this aspect of his illness is not reversible, such as a mood disorder. Consequently, the 1013 will be removed and the patient will be recommended for outpatient services, such as behavioral management for people on the autism spectrum. This information will be communicated to the patient's care givers. MENTAL STATUS EXAM: General Appearance: In hospital gown and no acute distress Sensorium/Consciousness: Clear Eye Contact: Variable Attitude / Behavior: Uncooperative Psychomotor & Musculoskeletal Activity: Appears restless Mood: Unable to obtain Affect: Unable to obtain Speech / Language: Unable to obtain Thought Processes: Unable to obtain Thought Content: Unable to obtain Perception: Unable to obtain Orientation: Unable to obtain Judgment What would you do if you smelled smoke in a crowded movie theater?: poor/impulsive Insight: poor Intelligence Vocabulary, general fund of knowledge, educational level :Unable to obtain Capacity of ADLs: Unable to assess INITIAL PLAN OF CARE AND TREATMENT GOALS: Continue Seroquel upon discharge Continue his home lithium dose upon discharge Refer patient to her outpatient mental health providers It is recommended that the family engage in some form of behavioral management training for autism spectrum disorders. Such training could be found at institute such as [facility]. Rescind 101
== END 2016-08-17 18:24 | disposition home or self-care (01) ==
LOC: ED 19:43 → EEVIPCON 19:43 → ED 08-17 18:24
DX: F84.0 Autistic disorder (principal); F29 Unspecified psychosis not due to a substance or known physiological condition; F31.9 Bipolar disorder, unspecified; J45.909 Unspecified asthma, uncomplicated
CPT/HCPCS: 36415; 80048; 80074; 80178; 80307; 81001; 82550; 85025; 96360; 96372; 99284; G0480; J1630; J7030; 80320

== ENCOUNTER 2016-09-27 19:38 | Emergency (ER) | payer MEDICAID ==
[2016-09-27 20:46] LABS: Urine Drugs of Abuse Note Disclamer
[2016-09-27 20:47] LABS: Basophils % (Auto) 0.7 % (0.0-1.8); Hematocrit 38.8 % (35.5-45.6); Mean Corpuscular HGB Conc 31 % (32-34); Platelet Count 213 K/mm3 (140-440); Red Cell Distribution Width 16.2 % (13.2-15.2); White Blood Count 5.2 K/mm3 (4.5-11.0)
[2016-09-27 20:49] LABS: Mean Corpuscular Hemoglobin 21 pg (28-32); Mean Corpuscular Volume 67 fl (84-94)
[2016-09-27] MEDS ORDERED: HALDOL ONE (20:51)
[2016-09-27] MEDS ORDERED: HALDOL IM ONE (20:53)
[2016-09-27] MEDS ORDERED: ATIVAN IM ONE (20:54)
--- NOTE | 2016-09-27 20:55 | Emergency Department Report ---
ED Psych HPI - General Chief Complaint: Psych Stated Complaint: MH EVAL Time Seen by Provider: 09/27/16 20:29 Source: family, EMS Mode of arrival: Stretcher - History of Present Illness Initial Comments: Patient is a 20-year-old male postural history of autism and bipolar disorder who presents with psychotic episode. Further history from patient is a nontender palpable to the patient's psychiatric condition. History from grandwa states that he was banging his head against the wall and punching himself and throwing things at home. He was also attacking the family dog. Grandmother was unaware of what other medications he has been taking. - Related Data Previous Rx's Medication Instructions Recorded Last Taken Type Benztropine [Cogentin] 0.5 mg PO QAM #20 tablet 08/17/16 Unknown Rx Benztropine [Cogentin] 0.5 mg PO QPM #20 tablet 08/17/16 Unknown Rx [place] Carbonate [Eskalith] 450 mg PO BID #60 capsule 08/17/16 Unknown Rx QUEtiapine [SEROquel] 200 mg PO QAM #30 tablet 08/17/16 Unknown Rx QUEtiapine [SEROquel] 300 mg PO QHS #30 tablet 08/17/16 Unknown Rx cloNIDine [Catapres] 0.1 mg PO DAILY #30 tablet 08/17/16 Unknown Rx cloNIDine [Catapres] 0.2 mg PO QHS #30 tablet 08/17/16 Unknown Rx Allergies Allergy/AdvReac Type Severity Reaction Status Date / Time No Known Allergies Allergy Verified 02/19/14 05:15 ED Review of Systems ROS: Stated complaint: MH EVAL Other details as noted in HPI Comment: Unobtainable due to pts medical conditions (psychiatric condition) ED Past Medical Hx - Past Medical History Hx Hypertension: No Hx CVA: No Hx Heart Attack/AMI: No Hx Congestive Heart Failure: No Hx Diabetes: No Hx Deep Vein Thrombosis: No Hx Pulmonary Embolism: No Hx GERD: No Hx Liver Disease: No Hx Renal Disease: No Hx Sickle Cell Disease: No Hx Arthritis: No Hx Headaches / Migraines: No Hx Seizures: No Hx Kidney Stones: No Hx Psychiatric Treatment: Yes (bipolar, autism) Hx Asthma: Yes Hx COPD: No Hx Tuberculosis: No Hx Dementia: No Hx HIV: No Additional medical history: autistic - Surgical History Past Surgical History?: No - Social History Smoking Status: Never Smoker Substance Use Type: None - Medications Home Medications: Home Medications Medication Instructions Recorded Confirmed Last Taken Type Benztropine [Cogentin] 0.5 mg PO QAM #20 tablet 08/17/16 Unknown Rx Benztropine [Cogentin] 0.5 mg PO QPM #20 tablet 08/17/16 Unknown Rx [place] Carbonate [Eskalith] 450 mg PO BID #60 capsule 08/17/16 Unknown Rx QUEtiapine [SEROquel] 200 mg PO QAM #30 tablet 08/17/16 Unknown Rx QUEtiapine [SEROquel] 300 mg PO QHS #30 tablet 08/17/16 Unknown Rx cloNIDine [Catapres] 0.1 mg PO DAILY #30 tablet 08/17/16 Unknown Rx cloNIDine [Catapres] 0.2 mg PO QHS #30 tablet 08/17/16 Unknown Rx ED Physical Exam - General Limitations: Other General appearance: alert - Head Head exam: Present: atraumatic, normocephalic - Eye Eye exam: Present: normal appearance - Neck Neck exam: Present: normal inspection - Respiratory Respiratory exam: Present: normal lung sounds bilaterally - Cardiovascular Cardiovascular Exam: Present: regular rate - GI/Abdominal GI/Abdominal exam: Present: soft - Rectal Rectal exam: Present: deferred - Extremities Exam Extremities exam: Present: normal inspection - Neurological Exam Neurological exam: Present: alert, CN II-XII intact. Absent: oriented X3 - Psychiatric Psychiatric exam: Present: agitated, other (psychotic aggressive) - Skin Skin exam: Present: warm ED Course Vital Signs 09/27/16 09/27/16 19:50 19:51 Temperature 98.8 F 98.8 F Pulse Rate 86 86 Respiratory 20 20 Rate Blood Pressure 148/100 Blood Pressure 148/100 [Left] O2 Sat by Pulse 100 100 Oximetry - Reevaluation(s) Reevaluation #1: 09/27/16 22:28 We'll discuss the patient's grandmother while patient's condition will place 1013 on patient and will give patient Haldol and Ativan due to his aggressive behavior, hitting his head against the guard rail. Reevaluation #2: 09/27/16 23:49 Discussed with mental health worker patient will go to [place]. He is medically cleared. ED Medical Decision Making - Lab Data Result diagrams: 09/27/16 20:27 09/27/16 20:27 Laboratory Results - last 24 hr 09/27/16 09/27/16 09/27/16 20:27 20:27 20:27 WBC 5.2 RBC 5.80 H Hgb 12.0 Hct 38.8 MCV 67 L MCH 21 L MCHC 31 L RDW 16.2 H Plt Count 213 Lymph % (Auto) 26.8 Emmet % (Auto) 12.0 H Eos % (Auto) 1.0 Baso % (Auto) 0.7 Lymph # 1.4 Emmet # 0.6 Eos # 0.1 Baso # 0.0 Seg Neutrophils % 59.5 Seg Neutrophils # 3.1 Carbon Dioxide 24 BUN 6 L Creatinine 1.0 Estimated GFR > 60 BUN/Creatinine Ratio 6.00 Glucose 101 H Calcium 9.7 Urine Color Urine Turbidity Urine pH Ur Specific [place] Urine Protein Urine Glucose (UA) Urine Ketones Urine Blood Urine Nitrite Urine Bilirubin Urine Urobilinogen Ur Leukocyte Esterase Urine WBC (Auto) Urine RBC (Auto) U Epithel Cells (Auto) Urine Mucus Urine Opiates Screen Urine Methadone Screen Ur Barbiturates Screen Ur Phencyclidine Scrn Ur Amphetamines Screen U Benzodiazepines Scrn Urine Cocaine Screen U Marijuana (THC) Screen Drugs of Abuse Note Plasma/Serum Alcohol < 0.01 09/27/16 09/27/16 Unknown Unknown WBC RBC Hgb Hct MCV MCH MCHC RDW Plt Count Lymph % (Auto) Emm[place] % (Auto) Eos % (Auto) Baso % (Auto) Lymph # [place] # Eos # Baso # Seg Neutrophils % Seg Neutrophils # Carbon Dioxide BUN Creatinine Estimated GFR BUN/Creatinine Ratio Glucose Calcium Urine Color Yellow Urine Turbidity Clear Urine pH 6.0 Ur Specific [place] 1.010 Urine Protein <15 mg/dl Urine Glucose (UA) Neg Urine Ketones Neg Urine Blood Neg Urine Nitrite Neg Urine Bilirubin Neg Urine Urobilinogen < 2.0 Ur Leukocyte Esterase Neg Urine WBC (Auto) < 1.0 Urine RBC (Auto) < 1.0 U Epithel Cells (Auto) < 1.0 Urine Mucus Few Urine Opiates Screen Presumptive negative Urine Methadone Screen Presumptive negative Ur Barbiturates Screen Presumptive negative Ur Phencyclidine Scrn Presumptive negative Ur Amphetamines Screen Presumptive negative U Benzodiazepines Scrn Presumptive positive Urine Cocaine Screen Presumptive negative U Marijuana (THC) Screen Presumptive negative Drugs of Abuse Note Disclamer Plasma/Serum Alcohol - Medical Decision Making Chief medical diagnosis: Psychosis Differential medical diagnosis: Substance induced mood disorder, bipolar disorder, schizophrenia We'll get CBC CMP and urinalysis urine drug screen ethanol level and we'll consult mental health worker. We'll place 1013 on patient due to him showing psychotic symptoms and being a danger to himself and others. Discussed plan with the patient's grandmother she agrees the plan. Critical care attestation.: If time is entered above; I have spent that time in minutes in the direct care of this critically ill patient, excluding procedure time. ED Disposition Clinical Impression: Autism Psychosis Qualifiers: Psychosis type: unspecified psychosis type Qualified Code(s): F29 - Unspecified psychosis not due to a substance or known physiological condition Bipolar disorder Qualifiers: Active/Remission status: currently active Current episode severity: severe Psychotic features: with psychotic features Disposition: DC/TX-65 PSY HOSP/PSY UNIT Is pt being admited?: No Does the pt Need Aspirin: No Condition: Stable Referrals: PRIMARY CARE, [Primary Care Provider] - 3-5 Days Time of Disposition: 23:51
[2016-09-27 20:57] LABS: Anion Gap 17 mmol/L; Blood Urea Nitrogen 6 mg/dL (9-20); Calcium 9.7 mg/dL (8.4-10.2); Carbon Dioxide 24 mmol/L (22-30); Chloride 101.2 mmol/L (98-107); Glucose 101 mg/dL (75-100); Potassium 3.6 mmol/L (3.6-5.0); Sodium 139 mmol/L (137-145)
[2016-09-27 21:09] LABS: Bilirubin,Urine NEG (Negative); Blood,Urine NEG (Negative); Ketones,Urine NEG (Negative); Leukocyte Esterase,Urine NEG (Negative); Mucus,Urine FEW /HPF; Nitrite,Urine NEG (Negative); Protein,Urine <15 mg/dL mg/dL (Negative); RBC,Urine < 1.0 /HPF (0.0-6.0); Urobilinogen,Urine < 2.0 mg/dL (<2.0); WBC,Urine < 1.0 /HPF (0.0-6.0)
[2016-09-27] MEDS ORDERED: ATIVAN ONE (23:05)
[2016-09-28] MEDS ORDERED: ATIVAN PO ONE (08:46)
[2016-09-28] MEDS ORDERED: CATAPRES PO SCH ×2 (10:00→22:00)
[2016-09-28] MEDS ORDERED: ESKALITH PO SCH (10:00)
[2016-09-28] MEDS ORDERED: COGENTIN PO SCH ×2 (10:00→18:00)
[2016-09-28 10:16] VITALS: BP 111/66
--- NOTE | 2016-09-28 10:58 | Event Note ---
Date: 09/28/16 Patient was seen by Mariah Buckner from [facility] Per his assessment patient is appropriate to be discharged home. The patient's grandmother was given a crisis number to call [phone] in the future. Per Psychiatry no gestures of SI/HI's and AVH's. Rescind 1013.
--- NOTE | 2016-09-28 12:43 | Event Note ---
Date: 09/28/16 Patient is seen and evaluated by psychiatry. He is cleared by psychiatry to go home, and his 1013 has been discontinued. Nursing staff and security endorse that patient is walking around without difficulty, he's been noted to be masturbating, and he is eating without difficulty. He will be discharged as per primary team's plan. Vital Signs 09/27/16 09/27/16 09/28/16 19:50 19:51 07:55 Temperature 98.8 F 98.8 F 98 F Pulse Rate 86 86 89 Respiratory 20 20 18 Rate Blood Pressure 148/100 Blood Pressure 148/100 111/66 [Left] O2 Sat by Pulse 100 100 100 Oximetry Lab Results 09/27/16 09/27/16 09/27/16 Range/Units 20:27 20:27 20:27 WBC 5.2 (4.5-11.0) K/mm3 RBC 5.80 H (3.65-5.03) M/mm3 Hgb 12.0 (11.8-15.2) gm/dl Hct 38.8 (35.5-45.6) % MCV 67 L (84-94) fl MCH 21 L (28-32) pg MCHC 31 L (32-34) % RDW 16.2 H (13.2-15.2) % Plt Count 213 (140-440) K/mm3 Lymph % (Auto) 26.8 (13.4-35.0) % [place] % (Auto) 12.0 H (0.0-7.3) % Eos % (Auto) 1.0 (0.0-4.3) % Baso % (Auto) 0.7 (0.0-1.8) % Lymph # 1.4 (1.2-5.4) K/mm3 [place] # 0.6 (0.0-0.8) K/mm3 Eos # 0.1 (0.0-0.4) K/mm3 Baso # 0.0 (0.0-0.1) K/mm3 Seg Neutrophils % 59.5 (40.0-70.0) % Seg Neutrophils # 3.1 (1.8-7.7) K/mm3 Carbon Dioxide 24 (22-30) mmol/L BUN 6 L (9-20) mg/dL Creatinine 1.0 (0.8-1.5) mg/dL Estimated GFR > 60 ml/min BUN/Creatinine Ratio 6.00 % Glucose 101 H (75-100) mg/dL Calcium 9.7 (8.4-10.2) mg/dL Urine Color (Yellow) Urine Turbidity (Clear) Urine pH (5.0-7.0) Ur Specific [place] (1.003-1.030) Urine Protein (Negative) mg/dL Urine Glucose (UA) (Negative) mg/dL Urine Ketones (Negative) mg/dL Urine Blood (Negative) Urine Nitrite (Negative) Urine Bilirubin (Negative) Urine Urobilinogen (<2.0) mg/dL Ur Leukocyte Esterase (Negative) Urine WBC (Auto) (0.0-6.0) /HPF Urine RBC (Auto) (0.0-6.0) /HPF U Epithel Cells (Auto) (0-13.0) /HPF Urine Mucus /HPF Urine Opiates Screen Urine Methadone Screen Ur Barbiturates Screen Ur Phencyclidine Scrn Ur Amphetamines Screen U Benzodiazepines Scrn Urine Cocaine Screen U Marijuana (THC) Screen Drugs of Abuse Note Plasma/Serum Alcohol < 0.01 (0-0.07) gm% 09/27/16 09/27/16 Range/Units Unknown Unknown WBC (4.5-11.0) K/mm3 RBC (3.65-5.03) M/mm3 Hgb (11.8-15.2) gm/dl Hct (35.5-45.6) % MCV (84-94) fl MCH (28-32) pg MCHC (32-34) % RDW (13.2-15.2) % Plt Count (140-440) K/mm3 Lymph % (Auto) (13.4-35.0) % [place] % (Auto) (0.0-7.3) % Eos % (Auto) (0.0-4.3) % Baso % (Auto) (0.0-1.8) % Lymph # (1.2-5.4) K/mm3 [place] # (0.0-0.8) K/mm3 Eos # (0.0-0.4) K/mm3 Baso # (0.0-0.1) K/mm3 Seg Neutrophils % (40.0-70.0) % Seg Neutrophils # (1.8-7.7) K/mm3 Carbon Dioxide (22-30) mmol/L BUN (9-20) mg/dL Creatinine (0.8-1.5) mg/dL Estimated GFR ml/min BUN/Creatinine Ratio % Glucose (75-100) mg/dL Calcium (8.4-10.2) mg/dL Urine Color Yellow (Yellow) Urine Turbidity Clear (Clear) Urine pH 6.0 (5.0-7.0) Ur Specific [place] 1.010 (1.003-1.030) Urine Protein <15 mg/dl (Negative) mg/dL Urine Glucose (UA) Neg (Negative) mg/dL Urine Ketones Neg (Negative) mg/dL Urine Blood Neg (Negative) Urine Nitrite Neg (Negative) Urine Bilirubin Neg (Negative) Urine Urobilinogen < 2.0 (<2.0) mg/dL Ur Leukocyte Esterase Neg (Negative) Urine WBC (Auto) < 1.0 (0.0-6.0) /HPF Urine RBC (Auto) < 1.0 (0.0-6.0) /HPF U Epithel Cells (Auto) < 1.0 (0-13.0) /HPF Urine Mucus Few /HPF Urine Opiates Screen Presumptive negative Urine Methadone Screen Presumptive negative Ur Barbiturates Screen Presumptive negative Ur Phencyclidine Scrn Presumptive negative Ur Amphetamines Screen Presumptive negative U Benzodiazepines Scrn Presumptive positive Urine Cocaine Screen Presumptive negative U Marijuana (THC) Screen Presumptive negative Drugs of Abuse Note Disclamer Plasma/Serum Alcohol (0-0.07) gm%
== END 2016-09-28 15:06 | disposition home or self-care (01) ==
LOC: ED 19:38 → EEVIPCON 19:38 → ED 09-28 15:06
DX: F84.0 Autistic disorder (principal); F31.9 Bipolar disorder, unspecified; F29 Unspecified psychosis not due to a substance or known physiological condition
CPT/HCPCS: 36415; 80048; 80307; 81001; 85025; 96372; 99284; G0480; J1630; J2060; 80320

== ENCOUNTER 2016-11-19 04:20 | Emergency (ER) | payer MEDICAID ==
[2016-11-19 05:27] LABS: Urine Drugs of Abuse Note Disclamer
[2016-11-19 05:47] LABS: Anion Gap 17 mmol/L; BUN/Creatinine Ratio 8.88; Blood Urea Nitrogen 8 mg/dL (9-20); Calcium 9.7 mg/dL (8.4-10.2); Carbon Dioxide 24 mmol/L (22-30); Chloride 102.3 mmol/L (98-107); Glucose 84 mg/dL (75-100); Sodium 139 mmol/L (137-145)
[2016-11-19 05:48] LABS: Basophils % (Auto) 0.5 % (0.0-1.8); Eosinophils % (Auto) 1.7 % (0.0-4.3); Hemoglobin 11.4 gm/dl (11.8-15.2); Mean Corpuscular HGB Conc 32 % (32-34); Platelet Count 200 K/mm3 (140-440); Red Blood Count 5.39 M/mm3 (3.65-5.03); Red Cell Distribution Width 17.2 % (13.2-15.2); White Blood Count 3.9 K/mm3 (4.5-11.0)
[2016-11-19 05:55] LABS: Mean Corpuscular Hemoglobin 21 pg (28-32); Mean Corpuscular Volume 67 fl (84-94)
[2016-11-19 06:23] LABS: Bilirubin,Urine NEG (Negative); Blood,Urine NEG (Negative); Ketones,Urine NEG (Negative); Leukocyte Esterase,Urine NEG (Negative); Nitrite,Urine NEG (Negative); Protein,Urine <15 mg/dL mg/dL (Negative); Urobilinogen,Urine < 2.0 mg/dL (<2.0); WBC,Urine < 1.0 /HPF (0.0-6.0)
[2016-11-19] MEDS ORDERED: ATIVAN IM ONE (12:18)
[2016-11-19] MEDS ORDERED: GEODON IM ONE (12:18)
[2016-11-19] MEDS ORDERED: BENADRYL IM ONE (12:20)
--- NOTE | 2016-11-19 14:09 | Emergency Department Report ---
ED Psych HPI - General Chief Complaint: Psych Stated Complaint: MH Time Seen by Provider: 11/19/16 11:51 Source: family Mode of arrival: Ambulatory Limitations: Other (autistic) - History of Present Illness Initial Comments: 21-year-old autistic male also with a history of asthma and bipolar presents to the hospital with cake inspector states that patient has been having violent outbursts. Web Development Intern has been involved with patient since yesterday because his grandparents are out of town. Patient has been hitting, yelling, and cursing.. No physical complaints reported. History obtained from cake inspector due to patient's underlying mental health disorder and autism. No suicidal or homicidal ideation reported - Related Data Home Medications Medication Instructions Recorded Confirmed Last Taken Diazepam 10 mg PO 0800,1400 11/19/16 11/19/16 Unknown Diazepam 20 mg PO QHS 11/19/16 11/19/16 Unknown Olanzapine [OLANZapine] 0.5 mg PO TID 11/19/16 11/19/16 Unknown Previous Rx's Medication Instructions Recorded Last Taken Type [place] Carbonate [Eskalith] 450 mg PO BID #60 capsule 08/17/16 Unknown Rx QUEtiapine [SEROquel] 200 mg PO QAM #30 tablet 08/17/16 Unknown Rx QUEtiapine [SEROquel] 300 mg PO QHS #30 tablet 08/17/16 Unknown Rx cloNIDine [Catapres] 0.1 mg PO DAILY #30 tablet 08/17/16 Unknown Rx cloNIDine [Catapres] 0.2 mg PO QHS #30 tablet 08/17/16 Unknown Rx Allergies Allergy/AdvReac Type Severity Reaction Status Date / Time No Known Allergies Allergy Verified 02/19/14 05:15 ED Review of Systems ROS: Stated complaint: MH Other details as noted in HPI Comment: Unobtainable due to pts medical conditions ED Past Medical Hx - Past Medical History Previous Medical History?: Yes Hx Hypertension: No Hx CVA: No Hx Heart Attack/AMI: No Hx Congestive Heart Failure: No Hx Diabetes: No Hx Deep Vein Thrombosis: No Hx Pulmonary Embolism: No Hx GERD: No Hx Liver Disease: No Hx Renal Disease: No Hx Sickle Cell Disease: No Hx Arthritis: No Hx Headaches / Migraines: No Hx Seizures: No Hx Kidney Stones: No Hx Psychiatric Treatment: Yes (bipolar, autism) Hx Asthma: Yes Hx COPD: No Hx Tuberculosis: No Hx Dementia: No Hx HIV: No Additional medical history: autistic - Surgical History Past Surgical History?: No - Social History Smoking Status: Never Smoker Substance Use Type: None - Medications Home Medications: Home Medications Medication Instructions Recorded Confirmed Last Taken Type [place] Carbonate [Eskalith] 450 mg PO BID #60 capsule 08/17/16 11/19/16 Unknown Rx QUEtiapine [SEROquel] 200 mg PO QAM #30 tablet 08/17/16 11/19/16 Unknown Rx QUEtiapine [SEROquel] 300 mg PO QHS #30 tablet 08/17/16 11/19/16 Unknown Rx cloNIDine [Catapres] 0.1 mg PO DAILY #30 tablet 08/17/16 11/19/16 Unknown Rx cloNIDine [Catapres] 0.2 mg PO QHS #30 tablet 08/17/16 11/19/16 Unknown Rx Diazepam 10 mg PO 0800,1400 11/19/16 11/19/16 Unknown History Diazepam 20 mg PO QHS 11/19/16 11/19/16 Unknown History Olanzapine [OLANZapine] 0.5 mg PO TID 11/19/16 11/19/16 Unknown History ED Physical Exam - General Limitations: Other - Other Other exam information: General: No limitations, patient is alert in no acute distress Head exam: Atraumatic, normocephalic Eyes exam: Normal appearance, pupils equal reactive to light ENT: Moist mucous membrane, normal oropharynx Neck exam: Normal inspection, full range of motion, no meningismus nontender Respiratory exam: Clear to auscultation bilateral, no wheezes, rales, crackles Cardiovascular: Normal rate and rhythm, normal heart sounds Abdomen: Soft, nondistended, and nontender, with normal bowel sounds, no rebound, or guarding Extremity: Full range of motion normal inspection no deformity Back: Normal Inspection, full range of motion, no tenderness Neurologic: Alert, cranial nerves intact, no motor or sensory deficit Psychiatric: normal affect, normal mood Skin: Warm, dry, intact ED Course Vital Signs 11/19/16 11/19/16 11/19/16 04:30 10:11 10:15 Temperature 98.0 F 98.4 F Pulse Rate 101 H 98 H Respiratory 18 20 18 Rate Blood Pressure 116/77 Blood Pressure 116/74 [Right] O2 Sat by Pulse 97 99 100 Oximetry - Reevaluation(s) Reevaluation #1: 11/19/16 14:11 pt - Consultations Consultation #1: 11/19/16 14:14 Case discussed with mental health. Patient is sudden change in behavior cord signs with the fact that his family members have left town and patient likely having outbursts. Does not meet 1013 criteria but will observe overnight for calm behavior and reevaluate in a.m. ED Medical Decision Making - Lab Data Result diagrams: 11/19/16 05:14 11/19/16 05:14 Lab Results 11/19/16 11/19/16 11/19/16 Range/Units 05:14 05:14 05:14 WBC 3.9 L (4.5-11.0) K/mm3 RBC 5.39 H (3.65-5.03) M/mm3 Hgb 11.4 L (11.8-15.2) gm/dl Hct 36.0 (35.5-45.6) % MCV 67 L (84-94) fl MCH 21 L (28-32) pg MCHC 32 (32-34) % RDW 17.2 H (13.2-15.2) % Plt Count 200 (140-440) K/mm3 Lymph % (Auto) 32.6 (13.4-35.0) % [place] % (Auto) 11.9 H (0.0-7.3) % Eos % (Auto) 1.7 (0.0-4.3) % Baso % (Auto) 0.5 (0.0-1.8) % Lymph # 1.3 (1.2-5.4) K/mm3 [place] # 0.5 (0.0-0.8) K/mm3 Eos # 0.1 (0.0-0.4) K/mm3 Baso # 0.0 (0.0-0.1) K/mm3 Seg Neutrophils % 53.3 (40.0-70.0) % Seg Neutrophils # 2.1 (1.8-7.7) K/mm3 Carbon Dioxide 24 (22-30) mmol/L BUN 8 L (9-20) mg/dL Creatinine 0.9 (0.8-1.5) mg/dL Estimated GFR > 60 ml/min BUN/Creatinine Ratio 8.88 % Glucose 84 (75-100) mg/dL Calcium 9.7 (8.4-10.2) mg/dL Urine Color (Yellow) Urine Turbidity (Clear) Urine pH (5.0-7.0) Ur Specific [place] (1.003-1.030) Urine Protein (Negative) mg/dL Urine Glucose (UA) (Negative) mg/dL Urine Ketones (Negative) mg/dL Urine Blood (Negative) Urine Nitrite (Negative) Urine Bilirubin (Negative) Urine Urobilinogen (<2.0) mg/dL Ur Leukocyte Esterase (Negative) Urine WBC (Auto) (0.0-6.0) /HPF Urine RBC (Auto) (0.0-6.0) /HPF U Epithel Cells (Auto) (0-13.0) /HPF Amorphous Crystals Hyaline Casts /LPF Urine Opiates Screen Urine Methadone Screen Ur Barbiturates Screen Ur Phencyclidine Scrn Ur Amphetamines Screen U Benzodiazepines Scrn [place] (0.0-1.2) mmol/L Urine Cocaine Screen U Marijuana (THC) Screen Drugs of Abuse Note Plasma/Serum Alcohol < 0.01 (0-0.07) gm% 11/19/16 11/19/16 11/19/16 Range/Units 05:14 05:15 05:15 WBC (4.5-11.0) K/mm3 RBC (3.65-5.03) M/mm3 Hgb (11.8-15.2) gm/dl Hct (35.5-45.6) % MCV (84-94) fl MCH (28-32) pg MCHC (32-34) % RDW (13.2-15.2) % Plt Count (140-440) K/mm3 Lymph % (Auto) (13.4-35.0) % [place] % (Auto) (0.0-7.3) % Eos % (Auto) (0.0-4.3) % Baso % (Auto) (0.0-1.8) % Lymph # (1.2-5.4) K/mm3 [place] # (0.0-0.8) K/mm3 Eos # (0.0-0.4) K/mm3 Baso # (0.0-0.1) K/mm3 Seg Neutrophils % (40.0-70.0) % Seg Neutrophils # (1.8-7.7) K/mm3 Carbon Dioxide (22-30) mmol/L BUN (9-20) mg/dL Creatinine (0.8-1.5) mg/dL Estimated GFR ml/min BUN/Creatinine Ratio % Glucose (75-100) mg/dL Calcium (8.4-10.2) mg/dL Urine Color Straw (Yellow) Urine Turbidity Clear (Clear) Urine pH 7.0 (5.0-7.0) Ur Specific [place] 1.006 (1.003-1.030) Urine Protein <15 mg/dl (Negative) mg/dL Urine Glucose (UA) Neg (Negative) mg/dL Urine Ketones Neg (Negative) mg/dL Urine Blood Neg (Negative) Urine Nitrite Neg (Negative) Urine Bilirubin Neg (Negative) Urine Urobilinogen < 2.0 (<2.0) mg/dL Ur Leukocyte Esterase Neg (Negative) Urine WBC (Auto) < 1.0 (0.0-6.0) /HPF Urine RBC (Auto) 5.0 (0.0-6.0) /HPF U Epithel Cells (Auto) < 1.0 (0-13.0) /HPF Amorphous Crystals Few Hyaline Casts 2 /LPF Urine Opiates Screen Presumptive negative Urine Methadone Screen Presumptive negative Ur Barbiturates Screen Presumptive negative Ur Phencyclidine Scrn Presumptive negative Ur Amphetamines Screen Presumptive negative U Benzodiazepines Scrn Presumptive positive [place] 0.9 (0.0-1.2) mmol/L Urine Cocaine Screen Presumptive negative U Marijuana (THC) Screen Presumptive negative Drugs of Abuse Note Disclamer Plasma/Serum Alcohol (0-0.07) gm% Sodium 139, potassium 4.0, chloride 102.3, anion gap 17 - Medical Decision Making Patient will be observed into the morning for improvement in behavior. Patient required Geodon and Ativan IM initially. Will continue current medication. Patient is on a 1013 at this time. - Differential Diagnosis autism, combative behavior, psychosis Critical Care Time: No Critical care attestation.: If time is entered above; I have spent that time in minutes in the direct care of this critically ill patient, excluding procedure time. ED Disposition Clinical Impression: Autism, Combative behavior Disposition: DC-01 TO HOME OR SELFCARE Is pt being admited?: No Does the pt Need Aspirin: No Condition: Stable Instructions: Autism (ED) Time of Disposition: 19:40
[2016-11-19] MEDS ORDERED: VALIUM PO PRN (19:09)
[2016-11-19] MEDS: VALIUM PO SCH (22:08)
[2016-11-19] MEDS: CATAPRES PO SCH (22:10)
[2016-11-19] MEDS: DIAZEPAM 20 MG PO SCH (22:11)
[2016-11-19] MEDS: ESKALITH PO SCH (22:15)
[2016-11-20] MEDS ORDERED: NON-FORMULARY (Diazepam [Diazepam] 10 MG) PO SCH (08:00)
[2016-11-20] MEDS: VALIUM PO SCH ×2 (09:26→14:47)
[2016-11-20] MEDS: ESKALITH PO SCH ×2 (09:32→21:38)
[2016-11-20] MEDS: CATAPRES PO SCH ×2 (09:32→21:31)
--- NOTE | 2016-11-20 14:12 | Consultation ---
History of Present Illness - Reason for Consult Consult date: 11/20/16 Reason for consult: Mental Health Evaluation Requesting physician: KYRA HSAFFER - Chief Complaint Chief complaint: Patient has autism - History of Present Psychiatric Illness 21-year-old autistic male also with a history of asthma and bipolar presents to the hospital with shuttle filler states that patient has been having violent outbursts. Today patient was calm, but non verbal during the assessment. Per the staff, patient has been appropriate the past couple hours. No gestures of SI /HI's and AVH's. Patient took all his his AM medications. The patient's grandparents are out of town at this time. He was brought in to [facility] by a shuttle filler. Medications and Allergies Allergies Allergy/AdvReac Type Severity Reaction Status Date / Time No Known Allergies Allergy Verified 02/19/14 05:15 Home Medications Medication Instructions Recorded Confirmed Last Taken Type [place] Carbonate [Eskalith] 450 mg PO BID #60 capsule 08/17/16 11/19/16 Unknown Rx QUEtiapine [SEROquel] 200 mg PO QAM #30 tablet 08/17/16 11/19/16 Unknown Rx QUEtiapine [SEROquel] 300 mg PO QHS #30 tablet 08/17/16 11/19/16 Unknown Rx cloNIDine [Catapres] 0.1 mg PO DAILY #30 tablet 08/17/16 11/19/16 Unknown Rx cloNIDine [Catapres] 0.2 mg PO QHS #30 tablet 08/17/16 11/19/16 Unknown Rx Diazepam 10 mg PO 0800,1400 11/19/16 11/19/16 Unknown History Diazepam 20 mg PO QHS 11/19/16 11/19/16 Unknown History Olanzapine [OLANZapine] 0.5 mg PO TID 11/19/16 11/19/16 Unknown History Active Meds: Active Medications Clonidine HCl (Catapres) 0.1 mg PO DAILY [facility] Last Admin: 11/20/16 09:32 Dose: 0.1 mg Clonidine HCl (Catapres) 0.2 mg PO QHS [facility] Last Admin: 11/19/16 22:10 Dose: 0.2 mg Diazepam (Valium) 10 mg PO 0800,1400 [facility] Last Admin: 11/20/16 09:26 Dose: 10 mg [place] Carbonate (Eskalith) 450 mg PO BID [facility] Last Admin: 11/20/16 09:32 Dose: 450 mg Miscellaneous Medication (Diazepam [Diazepam]) 20 mg PO QHS [facility] Last Admin: 11/19/16 22:11 Dose: 20 mg Olanzapine (Zyprexa) 0.5 mg PO TID [facility] Last Admin: 11/20/16 09:26 Dose: 0.5 mg Quetiapine Fumarate (Seroquel) 200 mg PO QAM [facility] Last Admin: 11/20/16 09:32 Dose: 200 mg Quetiapine Fumarate (Seroquel) 300 mg PO QHS [facility] Last Admin: 11/19/16 22:08 Dose: 300 mg Past psychiatric history - Past Medical History Past Medical History: other (Autism) Past Surgical History: No surgical history - past Psychiatric treatment and history psychiatric treatment history: Unable to obtain a psy hx and a fam psy hx. - Social History Social history: lives with family Mental Status Exam - Vital signs Last Vital Signs Temp 97.9 F 11/19/16 22:00 Pulse 94 H 11/19/16 22:00 Resp 16 11/19/16 22:00 BP 121/57 11/19/16 22:00 Pulse Ox 98 11/19/16 22:00 - Exam Narrative exam: Unable to complete MSE because of patient's condition (autism). Results Result Diagrams: 11/19/16 05:14 11/19/16 05:14 All other labs normal. Assessment and Plan Assessment and plan: Impression: Historical Dx: Autism. Today patient was calm, but non verbal during the assessment. Patient is no threat to self or others. Recommendation/Plan: Patient's grandparents are out of town. Sand Mill Operator Facing Sand involvement to assist with placing the patient back with his caregiver.
[2016-11-20] MEDS: DIAZEPAM 20 MG PO SCH (21:32)
[2016-11-21] MEDS: VALIUM PO SCH ×3 (09:25→22:05)
[2016-11-21] MEDS: ESKALITH PO SCH ×2 (10:44→22:00)
[2016-11-21] MEDS: CATAPRES PO SCH ×2 (10:44→22:05)
--- NOTE | 2016-11-21 15:52 | Progress Note ---
Subjective - Reason for Consult Consult date: 11/21/16 Reason for consult: follow up - Chief Complaint Chief complaint: 21-year-old autistic male also with a history of asthma and bipolar presents to the hospital with amplifier mechanic states that patient has been having violent outbursts. Today patient was calm, but non verbal during the assessment. Per the staff, patient has been appropriate and resting in his room. No gestures of SI/HI's and AVH's. Patient took all his his AM medications. The patient's grandparents are out of town at this time. He was brought in to [facility] by a amplifier mechanic. Mental Status Exam - Vital signs Last Vital Signs Temp 98 F 11/21/16 14:48 Pulse 83 11/21/16 14:48 Resp 18 11/21/16 14:48 BP 128/68 11/21/16 14:48 Pulse Ox 99 11/21/16 14:48 Assessment and Plan Narrative exam: Unable to complete MSE because of patient's condition (autism). Impression: Historical Dx: Autism. Today patient was calm, but non verbal during the assessment. Patient is no threat to self or others. Recommendation/Plan: Patient's grandparents are out of town. Metal Cleaner involvement to assist with placing the patient back with his caregiver.
[2016-11-22] MEDS: VALIUM PO SCH ×3 (08:54→22:18)
--- NOTE | 2016-11-22 10:32 | Progress Note ---
Subjective - Reason for Consult Consult date: 11/22/16 Reason for consult: Psychiatry Follow-up - Chief Complaint Chief complaint: 21-year-old autistic male also with a history of asthma and bipolar presents to the hospital with retention manager states that patient has been having violent outbursts. Today patient was calm, but non verbal during the assessment. Per the staff, patient has been appropriate and resting in his room with no behavioral disturbances overnight. No gestures of SI/HI's and AVH's. The patient 's grandparents are out of town at this time. He was brought in to [facility] by a retention manager. Mental Status Exam - Vital signs Last Vital Signs Temp 97.8 F 11/21/16 22:00 Pulse 84 11/21/16 22:00 Resp 18 11/21/16 22:00 BP 127/71 11/21/16 22:00 Pulse Ox 98 11/21/16 22:00 - Exam Narrative exam: Unable to complete MSE because of patient's condition (Autism). Assessment and Plan Impression: Historical Dx: Autism. Today patient was calm, but non verbal during the assessment. Patient is no threat to self or others. Recommendation/Plan: Patient's grandparents are out of town. Creosoting Engineer involvement to assist with placing the patient back with his caregiver.
[2016-11-22] MEDS: ESKALITH PO SCH ×2 (11:50→22:20)
[2016-11-22] MEDS: CATAPRES PO SCH ×2 (11:50→22:21)
[2016-11-23] MEDS: COGENTIN PO SCH ×3 (01:30→10:23)
[2016-11-23] MEDS: VALIUM PO SCH (08:50)
[2016-11-23 09:38] VITALS: BP 120/71
--- NOTE | 2016-11-23 09:55 | Progress Note ---
Subjective - Reason for Consult Consult date: 11/23/16 Reason for consult: Psychiatry Follow-up - Chief Complaint Chief complaint: 21-year-old autistic male also with a history of asthma and bipolar presents to the hospital with geothermal powerplant supervisor states that patient has been having violent outbursts. Today patient was calm, but non verbal during the assessment. Per the staff, no behavioral disturbances. No gestures of SI/HI's and AVH's. Mental Status Exam - Vital signs Last Vital Signs Temp 98.2 F 11/23/16 09:35 Pulse 63 11/23/16 09:35 Resp 20 11/23/16 09:35 BP 120/71 11/23/16 09:35 Pulse Ox 98 11/23/16 09:38 - Exam Narrative exam: Unable to complete MSE because of patient's condition (Autism). Assessment and Plan Impression: Historical Dx: Autism. Today patient was calm, but non verbal during the assessment. Patient is no threat to self or others. Recommendation/Plan: Patient can leave with his grandparents. Patient can follow up with his psychiatrist Dr Sood once discharged.
[2016-11-23] MEDS: CATAPRES PO SCH (10:22)
== END 2016-11-23 10:19 | disposition home or self-care (01) ==
LOC: EEVIPCON 04:20 → ED 04:20
DX: F84.0 Autistic disorder (principal); R46.89 Other symptoms and signs involving appearance and behavior; J45.909 Unspecified asthma, uncomplicated; F31.9 Bipolar disorder, unspecified
CPT/HCPCS: 36415; 80048; 80178; 80307; 81001; 85025; 96372; 99285; G0480; J1200; J2060; J3486; 80320

== ENCOUNTER 2017-03-04 12:50 | Emergency (ER) | payer MEDICAID ==
[2017-03-04] MEDS ORDERED: GEODON IM ONE ×2 (13:51→20:22)
[2017-03-04 15:39] LABS: Hematocrit 39.2 % (35.5-45.6); Hemoglobin 12.3 gm/dl (11.8-15.2); Mean Corpuscular HGB Conc 31 % (32-34); Platelet Count 209 K/mm3 (140-440); Red Blood Count 5.74 M/mm3 (3.65-5.03); Red Cell Distribution Width 16.1 % (13.2-15.2)
[2017-03-04 15:41] LABS: Mean Corpuscular Hemoglobin 21 pg (28-32); Mean Corpuscular Volume 68 fl (84-94)
[2017-03-04 15:57] LABS: BUN/Creatinine Ratio 7; Blood Urea Nitrogen 8 mg/dL (9-20); Calcium 9.4 mg/dL (8.4-10.2); Hemolysis Index 8
--- NOTE | 2017-03-04 16:04 | Emergency Department Report ---
HPI - General Time Seen by Provider: 03/04/17 13:12 - HPI HPI: The patient is a 21-year-old male with a history of mental health, who presents for evaluation of mental health. The patient has reported that the patient has experienced severe constant anger for the past one day, resulting in the patient acting out and damaging family property. The patient denies fever, headache, unexplained weight loss or weight gain, heat or cold intolerance, skin , hair, or nail changes, neuro deficits, homicidal ideations, suicidal ideations , or auditory or visual hallucinations. ED Past Medical Hx - Past Medical History Hx Hypertension: No Hx CVA: No Hx Heart Attack/AMI: No Hx Congestive Heart Failure: No Hx Diabetes: No Hx Deep Vein Thrombosis: No Hx Pulmonary Embolism: No Hx GERD: No Hx Liver Disease: No Hx Renal Disease: No Hx Sickle Cell Disease: No Hx Arthritis: No Hx Headaches / Migraines: No Hx Seizures: No Hx Kidney Stones: No Hx Psychiatric Treatment: Yes (bipolar, autism) Hx Asthma: Yes Hx COPD: No Hx Tuberculosis: No Hx Dementia: No Hx HIV: No Additional medical history: autistic - Social History Smoking Status: Never Smoker Substance Use Type: None - Medications Home Medications: Home Medications Medication Instructions Recorded Confirmed Last Taken Type [place] Carbonate [Eskalith] 450 mg PO BID #60 capsule 08/17/16 11/19/16 Unknown Rx QUEtiapine [SEROquel] 200 mg PO QAM #30 tablet 08/17/16 11/19/16 Unknown Rx QUEtiapine [SEROquel] 300 mg PO QHS #30 tablet 08/17/16 11/19/16 Unknown Rx cloNIDine [Catapres] 0.1 mg PO DAILY #30 tablet 08/17/16 11/19/16 Unknown Rx cloNIDine [Catapres] 0.2 mg PO QHS #30 tablet 08/17/16 11/19/16 Unknown Rx Diazepam 10 mg PO 0800,1400 11/19/16 11/19/16 Unknown History Diazepam 20 mg PO QHS 11/19/16 11/19/16 Unknown History Olanzapine [OLANZapine] 0.5 mg PO TID 11/19/16 11/19/16 Unknown History ED Review of Systems ROS: Stated complaint: MENTAL HEALTH EVALUATION Other details as noted in HPI Constitutional: denies: fever ENT: denies: throat or neck pain Respiratory: denies: cough, shortness of breath Cardiovascular: denies: chest pain Endocrine: denies unexplained weight loss or gain Gastrointestinal: denies: abdominal pain, nausea Genitourinary: denies: dysuria Musculoskeletal: denies: leg swelling Skin: denies: rash Neurological: denies: headache Hematological/Lymphatic: denies: easy bleeding or easy bruising Psych: denies sadness or hopelessness Physical Exam - Physical Exam Vital Signs: Vital Signs 03/04/17 13:58 Temperature 98 F Pulse Rate 95 H Respiratory 20 Rate Blood Pressure 131/78 [Left] Physical Exam: General: well-nourished, well-developed, no acute distress Head: Normocephalic, atraumatic Eyes: normal sclera ENT: Mucous membranes are pink and moist Neck: trachea midline, neck supple, No neck stiffness, no cervical adenopathy Respiratory: Breath sounds equal bilaterally, no wheezing, rales, or rhonchi Cardio: S1 and S2 present, no murmurs, rubs, gallops, capillary refill is brisk Abdomen: Normoactive bowel sounds, soft abdomen, no tenderness Musc: No pitting edema Skin: No rash Neuro: no facial drooping, normal speech Psych: Flat affect, patient withdrawn, no suicidal or homicidal ideations, no hallucinations ED Course Vital Signs 03/04/17 13:58 Temperature 98 F Pulse Rate 95 H Respiratory 20 Rate Blood Pressure 131/78 [Left] ED Medical Decision Making - Lab Data Result diagrams: 03/04/17 15:23 03/04/17 15:23 - Medical Decision Making The patient was seen and examined by myself. The patient is placed on a security monitor and continuous pulse ox. On initial evaluation, the patient was found to be in no distress. Labs are obtained. Lab results are grossly unremarkable. The patient is medically clear. Mental health is consulted. Mental health evaluates the patient and agrees that the patient is at risk of harm to self. A 1013 is completed. The patient will be admitted to a psychiatric facility once bed placement is obtained. Critical care attestation.: If time is entered above; I have spent that time in minutes in the direct care of this critically ill patient, excluding procedure time. ED Disposition Clinical Impression: Behavior concern in adult, Mood disorder Disposition: DC/TX-65 PSY HOSP/PSY UNIT Is pt being admited?: No Does the pt Need Aspirin: No Condition: Stable Time of Disposition: 16:04
[2017-03-04 20:23] LABS: Bilirubin,Urine NEG (Negative); Blood,Urine NEG (Negative); Color,Urine Yellow (Yellow); Mucus,Urine FEW /HPF; Nitrite,Urine NEG (Negative); Protein,Urine <15 mg/dL mg/dL (Negative); Urobilinogen,Urine < 2.0 mg/dL (<2.0)
[2017-03-04 20:37] LABS: Amphetamine Screen,Urine PRESUMPTIVE NEGATIVE; Cannabinoid Screen,Urine PRESUMPTIVE NEGATIVE; Cocaine Screen,Urine PRESUMPTIVE NEGATIVE; Methadone Screen,Urine PRESUMPTIVE NEGATIVE; Opiate Screen,Urine PRESUMPTIVE NEGATIVE
[2017-03-04 20:52] LABS: Benzodiazepines Screen,Urine PRESUMPTIVE POSITIVE
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
[2017-03-05] MEDS: CATAPRES PO SCH (10:35)
[2017-03-05] MEDS: ESKALITH PO SCH (10:36)
[2017-03-06] MEDS: VALIUM PO SCH ×2 (00:27→22:54)
[2017-03-06] MEDS: ESKALITH PO SCH ×3 (00:27→22:54)
[2017-03-06] MEDS: CATAPRES PO SCH ×3 (00:27→22:46)
--- NOTE | 2017-03-06 23:24 | Progress Note ---
Subjective - Reason for Consult Reason for consult: psych consult - Chief Complaint Chief complaint: 21 year old BM who presents to [facility] with change in agitation at home. Patient currently is lying on the bed with no issues. While he doesn't communicate linear answers as to how he is doing. Verbal and physical cues suggest that he is calm and likely at his baseline. No evidence of SI or HI. Remains disorganized. security staff and nursing note no acute issues at the time seen. Mental Status Exam - Vital signs Last Vital Signs Temp 99.0 F 03/05/17 00:31 Pulse 92 H 03/06/17 22:46 Resp 18 03/06/17 14:51 BP 122/79 03/06/17 22:46 Pulse Ox 99 03/06/17 14:51 - Exam Orientation: person Affect: other (smiling) Mood: other (no answer) Thought content: delusions Thought Process: Disorganized Perceptions: other (responds to self) Speech: minimal response Concentration: unable to pay attention Motor activity: normal Level of consciousness: alert Interaction: cooperative Assessment and Plan Assessment and Plan Assessment and plan: Impression: Per the record, the patient has Autism. Unspecified Mood DO. No change today Recommendation/Plan: Continue treatment as indicated. patient remains calm at likely at baseline. will require social service agency director involved.
[2017-03-07] MEDS: CATAPRES PO SCH ×2 (10:30→22:43)
[2017-03-07] MEDS: ESKALITH PO SCH ×2 (10:30→22:44)
[2017-03-07] MEDS: VALIUM PO SCH (22:44)
--- NOTE | 2017-03-08 09:53 | Progress Note ---
Subjective - Reason for Consult Consult date: 03/08/17 Reason for consult: Psychiatry Follow-up - Chief Complaint Chief complaint: The patient is a 21-year-old AA male presenting to [facility] for aggressive and combative behavior. This patient is known to me. Today patient is calm during the assessment. Per the staff, no behavioral disturbance overnight. No indication of side effects of his medications. Per his grandmother Ms Natividad Hines, she stated that the patient can return home once discharged. Mental Status Exam - Vital signs Last Vital Signs Temp 99.2 F 03/07/17 10:30 Pulse 77 03/08/17 06:47 Resp 18 03/08/17 06:45 BP 134/88 03/08/17 06:47 Pulse Ox 97 03/07/17 10:39 - Exam Narrative exam: MSE: Appearance: calm Behavior: good eye contact Speech: regular rate and tone Mood: "okay" Affect: congruent to mood Thought Process: unable to assess Thought Content: no gestures of SI/HI's and AVH's Motor Activity: ambulatory Cognition: alert Insight: limited Judgment: limited Assessment and Plan Impression: Per the record, the patient has Autism. Unspecified Mood DO. Today patient is calm during the assessment. This is the patient's baseline. Recommendation/Plan: Rescind 1013. Patient can follow up with his psychiatrist Dr Sood for outpatient psy services. Patient does not need any prescriptions once discharged.
[2017-03-08] MEDS: ESKALITH PO SCH (11:33)
[2017-03-08] MEDS: CATAPRES PO SCH (11:33)
[2017-03-08] MEDS ORDERED: GEODON IM ONE (11:44)
[2017-03-08] MEDS ORDERED: ATIVAN IM ONE (11:44)
[2017-03-08 18:58] VITALS: BP 114/64
== END 2017-03-08 19:12 | disposition home or self-care (01) ==
LOC: EEVIPCON 12:50 → ED 12:50
DX: F39 Unspecified mood [affective] disorder (principal); J45.909 Unspecified asthma, uncomplicated; F31.9 Bipolar disorder, unspecified
CPT/HCPCS: 36415; 80048; 80178; 80307; 81001; 82550; 85027; 96372; 99284; G0480; J2060; J3486; 80320

== ENCOUNTER 2017-03-24 19:55 | Emergency (ER) | payer MEDICAID ==
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
[2017-03-24 21:57] VITALS: BP 124/75
--- NOTE | 2017-03-24 22:34 | Cat Scan Report ---
FINAL REPORT EXAM: CT HEAD/BRAIN WO CON HISTORY: head injury with deep laceration TECHNIQUE: CT head without contrast PRIORS: Comparison is dated April 16, 2016 FINDINGS: No acute intra-axial or extra-axial hemorrhage is identified. There is no evidence of midline shift or mass effect. The ventricles and sulci are within normal limits. Cabello-white matter differentiation is intact. No acute parenchymal abnormalities seen. Bony calvarium is grossly intact. Visualized portions of the mastoids and paranasal sinuses are unremarkable. IMPRESSION: Negative CT head
--- NOTE | 2017-03-24 22:40 | Cat Scan Report ---
FINAL REPORT EXAM: CT CERVICAL SPINE WO CON HISTORY: head injury with deep laceration TECHNIQUE: CT cervical spine with reconstructions PRIORS: None. FINDINGS: Vertebral bodies demonstrate normal height and alignment. The disk spaces are within normal limits. The facet joints demonstrate normal alignment. The spinous processes are intact. Craniocervical junction is unremarkable. C1 and C2 are intact. IMPRESSION: Negative CT cervical spine. No acute abnormality seen.
[2017-03-24] MEDS ORDERED: LET TOPICAL TP ONE ×4 (23:24→23:25)
--- NOTE | 2017-03-24 23:56 | Emergency Department Report ---
ED Laceration HPI - HPI Chief Complaint: Wound/Laceration Stated Complaint: LACERATION TO HEAD Time Seen by Provider: 03/24/17 21:20 Occurred When: Today Location: Head Severity: mild Tetanus Status: Up to Date Laceration Symptoms: Yes Pain, No Foreign Body Sensation, No Numbness, No Weakness Other History: This is a 21-year-old male accompained by mother nontoxic, well nourished in appearance, no acute signs of distress presents to the ED with c/o of lacerations at the mid frontal scalp region. Mother stated patient was jumping and hit his head against the corner of the wall. Mother stated this occured today around 7 PM. Mother denies patient having any loss of consciousness. Mother stated patient is autistic. Mother states patient is up- to-date vaccines including tetanus 2 years ago. Mother stated patients acting normally with no signs of distress. ED Review of Systems ROS: Stated complaint: LACERATION TO HEAD Other details as noted in HPI ROS helped with mother Constitutional: denies: fever Respiratory: denies: cough, shortness of breath, wheezing Cardiovascular: denies: syncope Gastrointestinal: denies: abdominal pain, vomiting, diarrhea Genitourinary: denies: hematuria, discharge Skin: denies: rash, lesions Neurological: denies: weakness, confusion, abnormal gait ED Past Medical Hx - Past Medical History Hx Hypertension: No Hx CVA: No Hx Heart Attack/AMI: No Hx Congestive Heart Failure: No Hx Diabetes: No Hx Deep Vein Thrombosis: No Hx Pulmonary Embolism: No Hx GERD: No Hx Liver Disease: No Hx Renal Disease: No Hx Sickle Cell Disease: No Hx Arthritis: No Hx Headaches / Migraines: No Hx Seizures: No Hx Kidney Stones: No Hx Psychiatric Treatment: Yes (bipolar, autism) Hx Asthma: Yes Hx COPD: No Hx Tuberculosis: No Hx Dementia: No Hx HIV: No Additional medical history: autistic - Social History Smoking Status: Never Smoker Substance Use Type: None - Medications Home Medications: Home Medications Medication Instructions Recorded Confirmed Last Taken Type [place] Carbonate [Eskalith] 450 mg PO BID #60 capsule 08/17/16 03/05/17 Unknown Rx QUEtiapine [SEROquel] 200 mg PO QAM #30 tablet 08/17/16 03/05/17 Unknown Rx QUEtiapine [SEROquel] 300 mg PO QHS #30 tablet 08/17/16 03/05/17 Unknown Rx cloNIDine [Catapres] 0.1 mg PO DAILY #30 tablet 08/17/16 03/05/17 Unknown Rx cloNIDine [Catapres] 0.2 mg PO QHS #30 tablet 08/17/16 03/05/17 Unknown Rx Diazepam 10 mg PO 0800,1400 11/19/16 03/05/17 Unknown History Diazepam 20 mg PO QHS 11/19/16 03/05/17 Unknown History Olanzapine [OLANZapine] 0.5 mg PO TID 11/19/16 03/05/17 Unknown History Ibuprofen [Motrin] 600 mg PO Q8H PRN #15 tablet 03/25/17 Unknown Rx Sulfamethoxazole/Trimethoprim 1 each PO BID #14 tablet 03/25/17 Unknown Rx [Bactrim DS TAB] Laceration Physical Exam - Exam General: Vital signs noted. No distress. Alert and acting appropriately. GENERAL: The patient is a well-developed, well-nourished in no apparent distress. Patient is alert and acting appropriately for age. Alert, no apparent distress, normal gait, atraumatic. HEENT: Head is normocephalic and atraumatic. PERRL, Extraocular muscles are intact. Pupils are equal, round, and reactive to light and accommodation. Nares appeared normal. Mouth is well hydrated and without lesions. Mucous membranes are moist. Posterior pharynx clear of any exudate or lesions. Mouth is well hydrated and without lesions. Tonsils not erythematous or swollen. Uvula midline. Tongue elevated. Mucous members are moist. Posterior pharynx clear, no exudate or lesions. Patent airways. NECK: Supple. No carotid bruits. No lymphadenopathy or thyromegaly.nontender. No meningitic signs are noted. LUNGS: Clear to auscultation. Non labor breathing. No intercostal retractions. Symmetrical with respiration, no wheezing, no rales, or crackles. HEART: Regular rate and rhythm without murmur, rubs or gallops. No reproducible. S1, S2 present, regular rate and rhythm without murmur, no rubs, no gallops. ABDOMEN: Soft, nontender, and nondistended. Positive bowel sounds. No hepatosplenomegaly was noted. No guarding or rebound tenderness, negative epigastric bruit. Negative psoas sign, negative melvin sign, negative McBurneys sign EXTREMITIES: Without any cyanosis, clubbing, rash, lesions or edema. Peripheral pulses intact. Capillary refill less than 2 seconds. Full range of motion bilaterally. NEUROLOGIC: Cranial nerves II through XII are grossly intact. Alert and oriented x 3. Normal gait. Symmetrical strength and sensation. Reflexes 2+ throughout. Cerebellar testing normal. GCS score of 15. PSYCHIATRIC: Normal affect with no suicidal or homicidal ideations. Skin: 7 cm laceration to the mid frontal scalp region. Wound Length (cm): 7 Laceration Location: Head Full Body Front + Back: 1 - 7 cm lac Laceration Exam: Yes Normal Distal CMS, No Foreign Body, No Exposed Tendon, Vessel, or Nerve, No Tendon Injury ED Course Vital Signs 03/24/17 03/24/17 20:25 21:56 Temperature 98.4 F Pulse Rate 120 H 89 Respiratory 20 18 Rate Blood Pressure 148/112 Blood Pressure 124/75 [Right] O2 Sat by Pulse 100 98 Oximetry - Reevaluation(s) Reevaluation #1: 03/24/17 23:55 Patient is very talkative and acting normally as mother stated with no signs of distress noted. - Laceration /Wound Repair Head Wound Location: head (frontal mid scalp region) Wound Length (cm): 7 Wound's Depth, Shape: superficial Wound Explored: clean Irrigated w/ Saline (ccs): 40 Betadine Prep?: Yes Wound Debrided: minimal Sterile Dressing Applied?: Yes Progress: Under sterile field, I used Betadine to clean the area. I then used 40 mL of normal saline to flush the area. I then used LET topical to the laceration region. I then used a stapler to close the laceration. Number of darryl 10. I then applied a sterile 4 x 4 with tape. Minimal bleeding noted but is under control. Patient tolerated procedure well with no signs of distress. ED Medical Decision Making - Medical Decision Making 21-year-old male that presents with laceration. Patient is stable and was exam by me. Laceration has been repaired with stapler with total of 10 darryl. Sterile dressing has been applied. CT of head/brain and cervical spine has been obtained prior to my interview and dictated by radiologist within normal limits. Parents are notified of CT results with noted by the parents. Parents was instructed to have the patient return in 5-7 days for staple removal. Patient is discharged with Bactrim and Motrin for pain. Parents was instructed to have the patient Follow-up with a primary care doctor in 3-5 days or if symptoms worsen and continue return to emergency room as soon as possible. At time time of discharge, the patient does not seem toxic or ill in appearance. No acute signs of distress noted. Patient agrees to discharge treatment plan of care. No further questions noted by the patient. This chart is dictated with using [employer]ation [employer] Critical care attestation.: If time is entered above; I have spent that time in minutes in the direct care of this critically ill patient, excluding procedure time. ED Disposition Clinical Impression: Laceration Disposition: DC-01 TO HOME OR SELFCARE Is pt being admited?: No Does the pt Need Aspirin: No Condition: Stable Instructions: Laceration (ED), Suture Care (ED), Ibuprofen (By mouth), Sulfamethoxazole/Trimethoprim (By mouth) Additional Instructions: Follow-up with a primary care doctor in 3-5 days or if symptoms worsen and continue return to emergency room as soon as possible. Return in 5-7 days for staple removal. Prescriptions: Ibuprofen [Motrin] 600 mg PO Q8H PRN #15 tablet PRN Reason: Pain Sulfamethoxazole/Trimethoprim [Bactrim DS TAB] 1 each PO BID #14 tablet Referrals: PRIMARY MD LENNY [Primary Care Provider] - 3-5 Days KRYSTA MINER MD [Staff Physician] - 3-5 Days [facility] [Outside] - 3-5 Days [facility] [Outside] - 3-5 Days Forms: Work/School Release Form(ED)
== END 2017-03-25 00:25 | disposition home or self-care (01) ==
LOC: ED 19:55
DX: S01.01XA Laceration without foreign body of scalp, initial encounter (principal); J45.909 Unspecified asthma, uncomplicated; W22.8XXA Striking against or struck by other objects, initial encounter; Y93.89 Activity, other specified; Y92.89 Other specified places as the place of occurrence of the external cause; Y99.8 Other external cause status
CPT/HCPCS: 70450; 72125

== ENCOUNTER 2017-03-30 09:51 | Emergency (ER) | payer MEDICAID ==
[2017-03-30 10:54] VITALS: BP 146/88
--- NOTE | 2017-03-30 11:18 | Emergency Department Report ---
Suture/Staple Removal - [facility] Chief Complaint: Laceration/Recheck/Suture Stated Complaint: STAPLE REMOVAL Time Seen by Provider: 03/30/17 11:12 When Sutures or Darryl Placed: 8-10 Days Ago Wound Location: head, scalp ED Review of Systems ROS: Stated complaint: STAPLE REMOVAL Other details as noted in HPI Constitutional: denies: chills, fever Eyes: denies: eye pain, eye discharge, vision change ENT: denies: ear pain, throat pain Respiratory: denies: cough, shortness of breath, wheezing Cardiovascular: denies: chest pain, palpitations Endocrine: no symptoms reported Gastrointestinal: denies: abdominal pain, nausea, diarrhea Genitourinary: denies: urgency, dysuria Musculoskeletal: denies: back pain, joint swelling, arthralgia Skin: denies: rash, lesions Neurological: denies: headache, weakness, paresthesias Psychiatric: denies: anxiety, depression Hematological/Lymphatic: denies: easy bleeding, easy bruising ED Past Medical Hx - Past Medical History Previous Medical History?: Yes Hx Hypertension: No Hx CVA: No Hx Heart Attack/AMI: No Hx Congestive Heart Failure: No Hx Diabetes: No Hx Deep Vein Thrombosis: No Hx Pulmonary Embolism: No Hx GERD: No Hx Liver Disease: No Hx Renal Disease: No Hx Sickle Cell Disease: No Hx Arthritis: No Hx Headaches / Migraines: No Hx Seizures: No Hx Kidney Stones: No Hx Psychiatric Treatment: Yes (bipolar, autism) Hx Asthma: Yes Hx COPD: No Hx Tuberculosis: No Hx Dementia: No Hx HIV: No Additional medical history: autistic - Surgical History Past Surgical History?: No - Social History Smoking Status: Never Smoker Substance Use Type: Prescribed - Medications Home Medications: Home Medications Medication Instructions Recorded Confirmed Last Taken Type [place] Carbonate [Eskalith] 450 mg PO BID #60 capsule 08/17/16 03/05/17 Unknown Rx QUEtiapine [SEROquel] 200 mg PO QAM #30 tablet 08/17/16 03/05/17 Unknown Rx QUEtiapine [SEROquel] 300 mg PO QHS #30 tablet 08/17/16 03/05/17 Unknown Rx cloNIDine [Catapres] 0.1 mg PO DAILY #30 tablet 08/17/16 03/05/17 Unknown Rx cloNIDine [Catapres] 0.2 mg PO QHS #30 tablet 08/17/16 03/05/17 Unknown Rx Diazepam 10 mg PO 0800,1400 11/19/16 03/05/17 Unknown History Diazepam 20 mg PO QHS 11/19/16 03/05/17 Unknown History Olanzapine [OLANZapine] 0.5 mg PO TID 11/19/16 03/05/17 Unknown History Ibuprofen [Motrin] 600 mg PO Q8H PRN #15 tablet 03/25/17 Unknown Rx Sulfamethoxazole/Trimethoprim 1 each PO BID #14 tablet 03/25/17 Unknown Rx [Bactrim DS TAB] Suture Removal Exam - Exam General: Vital signs noted. No distress. Alert and acting appropriately. Wound: No Pathologic Erythema, No Tenderness, No Drainage, No Pus, No Wound Dehiscence Other Systems: All other systems reviewed and are unremarkable. ED Course Vital Signs 03/30/17 10:52 Temperature 98 F Pulse Rate 110 H Respiratory 16 Rate Blood Pressure 146/88 O2 Sat by Pulse 99 Oximetry ED Recheck MDM - Medical Decision Making 21-year-old male presents for staple removal. 9 darryl removed with no problems. Patient tolerated procedure well. Discussed acute care with child and mother. Vital signs are stable patient is in no acute distress. Critical care attestation.: If time is entered above; I have spent that time in minutes in the direct care of this critically ill patient, excluding procedure time. ED Disposition Clinical Impression: Encounter for staple removal Disposition: DC-01 TO HOME OR SELFCARE Is pt being admited?: No Does the pt Need Aspirin: No Condition: Stable Instructions: Acute Wound Care (ED) Additional Instructions: Make sure to follow up with the primary care physician as discussed. Take all your medications as you've been prescribed. If you have any worsening symptoms or develop new symptoms please return to ED immediately. Referrals: [facility] [Outside] - 3-5 Days [facility] [Outside] - 3-5 Days Forms: Work/School Release Form(ED) Time of Disposition: 11:18
== END 2017-03-30 13:30 | disposition home or self-care (01) ==
LOC: ED 09:51
DX: S01.01XD Laceration without foreign body of scalp, subsequent encounter (principal); X58.XXXD Exposure to other specified factors, subsequent encounter

== ENCOUNTER 2017-04-17 09:45 | Emergency (ER) | payer MEDICAID ==
[2017-04-17 10:23] VITALS: BP 139/80
== END 2017-04-17 10:27 | disposition left against medical advice (07) ==
LOC: ED 09:45
DX: F29 Unspecified psychosis not due to a substance or known physiological condition (principal); Z53.21 Procedure and treatment not carried out due to patient leaving prior to being seen by health care provider

== ENCOUNTER 2017-05-01 10:03 | Emergency (ER) | payer MEDICAID ==
[2017-05-01 12:22] LABS: Bilirubin,Urine NEG (Negative); Blood,Urine NEG (Negative); Color,Urine Straw (Yellow); Protein,Urine <15 mg/dL mg/dL (Negative); Urobilinogen,Urine < 2.0 mg/dL (<2.0)
[2017-05-01 12:33] LABS: Hematocrit 33.8 % (35.5-45.6); Hemoglobin 10.7 gm/dl (11.8-15.2); Mean Corpuscular HGB Conc 32 % (32-34); Platelet Count 214 K/mm3 (140-440); Red Blood Count 5.06 M/mm3 (3.65-5.03); Red Cell Distribution Width 17.8 % (13.2-15.2)
[2017-05-01 12:35] LABS: Mean Corpuscular Hemoglobin 21 pg (28-32); Mean Corpuscular Volume 67 fl (84-94)
[2017-05-01 12:44] LABS: Amphetamine Screen,Urine PRESUMPTIVE NEGATIVE; Cannabinoid Screen,Urine PRESUMPTIVE NEGATIVE; Cocaine Screen,Urine PRESUMPTIVE NEGATIVE; Methadone Screen,Urine PRESUMPTIVE NEGATIVE; Opiate Screen,Urine PRESUMPTIVE NEGATIVE
[2017-05-01 12:49] LABS: BUN/Creatinine Ratio 6; Blood Urea Nitrogen 5 mg/dL (9-20); Calcium 9.5 mg/dL (8.4-10.2); Hemolysis Index 5
[2017-05-01 12:59] LABS: Benzodiazepines Screen,Urine PRESUMPTIVE POSITIVE
--- NOTE | 2017-05-01 15:04 | Emergency Department Report ---
ED Psych HPI - General Chief Complaint: Psych Stated Complaint: EVALUATION Time Seen by Provider: 05/01/17 12:04 Source: family, EMS Mode of arrival: Ambulatory Limitations: Other - History of Present Illness Initial Comments: 21-year-old male with a history of asthma, autism, and bipolar disorder presents to the hospital with complaints of combative behavior as per patient's grandmother and care take. Apparently patient was medicated prior to arrival and now is sedated. Patient is no acute distress at this time - Related Data Home Medications Medication Instructions Recorded Confirmed Last Taken Diazepam 10 mg PO 0800,1400 11/19/16 03/05/17 Unknown Diazepam 20 mg PO QHS 11/19/16 03/05/17 Unknown Olanzapine [OLANZapine] 0.5 mg PO TID 11/19/16 03/05/17 Unknown Previous Rx's Medication Instructions Recorded Last Taken Type [place] Carbonate [Eskalith] 450 mg PO BID #60 capsule 08/17/16 Unknown Rx QUEtiapine [SEROquel] 200 mg PO QAM #30 tablet 08/17/16 Unknown Rx QUEtiapine [SEROquel] 300 mg PO QHS #30 tablet 08/17/16 Unknown Rx cloNIDine [Catapres] 0.1 mg PO DAILY #30 tablet 08/17/16 Unknown Rx cloNIDine [Catapres] 0.2 mg PO QHS #30 tablet 08/17/16 Unknown Rx Ibuprofen [Motrin] 600 mg PO Q8H PRN #15 tablet 03/25/17 Unknown Rx Sulfamethoxazole/Trimethoprim 1 each PO BID #14 tablet 03/25/17 Unknown Rx [Bactrim DS TAB] Allergies Allergy/AdvReac Type Severity Reaction Status Date / Time No Known Allergies Allergy Verified 02/19/14 05:15 ED Review of Systems ROS: Stated complaint: EVALUATION Other details as noted in HPI Comment: Unobtainable due to pts medical conditions (autism) ED Past Medical Hx - Past Medical History Hx Hypertension: No Hx CVA: No Hx Heart Attack/AMI: No Hx Congestive Heart Failure: No Hx Diabetes: No Hx Deep Vein Thrombosis: No Hx Pulmonary Embolism: No Hx GERD: No Hx Liver Disease: No Hx Renal Disease: No Hx Sickle Cell Disease: No Hx Arthritis: No Hx Headaches / Migraines: No Hx Seizures: No Hx Kidney Stones: No Hx Psychiatric Treatment: Yes (bipolar, autism) Hx Asthma: Yes Hx COPD: No Hx Tuberculosis: No Hx Dementia: No Hx HIV: No Additional medical history: autistic - Social History Smoking Status: Never Smoker Substance Use Type: None - Medications Home Medications: Home Medications Medication Instructions Recorded Confirmed Last Taken Type [place] Carbonate [Eskalith] 450 mg PO BID #60 capsule 08/17/16 03/05/17 Unknown Rx QUEtiapine [SEROquel] 200 mg PO QAM #30 tablet 08/17/16 03/05/17 Unknown Rx QUEtiapine [SEROquel] 300 mg PO QHS #30 tablet 08/17/16 03/05/17 Unknown Rx cloNIDine [Catapres] 0.1 mg PO DAILY #30 tablet 08/17/16 03/05/17 Unknown Rx cloNIDine [Catapres] 0.2 mg PO QHS #30 tablet 08/17/16 03/05/17 Unknown Rx Diazepam 10 mg PO 0800,1400 11/19/16 03/05/17 Unknown History Diazepam 20 mg PO QHS 11/19/16 03/05/17 Unknown History Olanzapine [OLANZapine] 0.5 mg PO TID 11/19/16 03/05/17 Unknown History Ibuprofen [Motrin] 600 mg PO Q8H PRN #15 tablet 03/25/17 Unknown Rx Sulfamethoxazole/Trimethoprim 1 each PO BID #14 tablet 03/25/17 Unknown Rx [Bactrim DS TAB] ED Physical Exam - General Limitations: Other - Other Other exam information: General: No limitations, patient is alert in no acute distress Head exam: Atraumatic, normocephalic Eyes exam: Normal appearance, pupils equal reactive to light ENT: Moist mucous membrane, normal oropharynx Neck exam: Normal inspection, full range of motion, no meningismus nontender Respiratory exam: Clear to auscultation bilateral, no wheezes, rales, crackles Cardiovascular: Normal rate and rhythm Abdomen: Soft, nondistended, and nontender, with normal bowel sounds, no rebound, or guarding Extremity: Full range of motion normal inspection no deformity Back: Normal Inspection, full range of motion, no tenderness Neurologic alert upon arrival, no motor sensory deficit Skin: Warm, dry, intact ED Course Vital Signs 05/01/17 05/01/17 05/01/17 10:19 10:57 11:13 Temperature 98.5 F 98.5 F 97.0 F L Pulse Rate 82 82 82 Respiratory 18 18 18 Rate Blood Pressure 121/65 Blood Pressure 121/65 121/65 [Left] O2 Sat by Pulse 97 97 97 Oximetry 05/01/17 05/01/17 05/01/17 14:16 16:30 20:49 Temperature 97.3 F L 98.8 F Pulse Rate 63 92 H Respiratory 20 20 16 Rate Blood Pressure Blood Pressure 101/53 136/97 [Left] O2 Sat by Pulse 97 99 99 Oximetry 05/02/17 10:12 Temperature Pulse Rate 76 Respiratory 18 Rate Blood Pressure Blood Pressure 121/57 [Left] O2 Sat by Pulse 96 Oximetry - Consultations Consultation #1: 05/01/17 15:04 Patient pending mental health evaluation. ED Medical Decision Making - Lab Data Result diagrams: 05/01/17 12:18 05/01/17 12:18 Lab Results 05/01/17 05/01/17 05/01/17 Range/Units 12:06 12:06 12:18 WBC 4.4 L (4.5-11.0) K/mm3 RBC 5.06 H (3.65-5.03) M/mm3 Hgb 10.7 L (11.8-15.2) gm/dl Hct 33.8 L (35.5-45.6) % MCV 67 L (84-94) fl MCH 21 L (28-32) pg MCHC 32 (32-34) % RDW 17.8 H (13.2-15.2) % Plt Count 214 (140-440) K/mm3 Sodium (137-145) mmol/L Potassium (3.6-5.0) mmol/L Chloride (98-107) mmol/L Carbon Dioxide (22-30) mmol/L Anion Gap mmol/L BUN (9-20) mg/dL Creatinine (0.8-1.5) mg/dL Estimated GFR ml/min BUN/Creatinine Ratio % Glucose (75-100) mg/dL Calcium (8.4-10.2) mg/dL Urine Color Straw (Yellow) Urine Turbidity Clear (Clear) Urine pH 8.0 H (5.0-7.0) Ur Specific [place] 1.005 (1.003-1.030) Urine Protein <15 mg/dl (Negative) mg/dL Urine Glucose (UA) Neg (Negative) mg/dL Urine Ketones Neg (Negative) mg/dL Urine Blood Neg (Negative) Urine Nitrite Neg (Negative) Urine Bilirubin Neg (Negative) Urine Urobilinogen < 2.0 (<2.0) mg/dL Ur Leukocyte Esterase Neg (Negative) Urine WBC (Auto) 0.0 (0.0-6.0) /HPF Urine RBC (Auto) 1.0 (0.0-6.0) /HPF Urine Opiates Screen Presumptive negative Urine Methadone Screen Presumptive negative Ur Barbiturates Screen Presumptive negative Ur Phencyclidine Scrn Presumptive negative Ur Amphetamines Screen Presumptive negative U Benzodiazepines Scrn Presumptive positive [place] (0.0-1.2) mmol/L Urine Cocaine Screen Presumptive negative U Marijuana (THC) Screen Presumptive negative Drugs of Abuse Note Disclamer Plasma/Serum Alcohol (0-0.07) % 05/01/17 05/01/17 05/01/17 Range/Units 12:18 12:18 12:18 WBC (4.5-11.0) K/mm3 RBC (3.65-5.03) M/mm3 Hgb (11.8-15.2) gm/dl Hct (35.5-45.6) % MCV (84-94) fl MCH (28-32) pg MCHC (32-34) % RDW (13.2-15.2) % Plt Count (140-440) K/mm3 Sodium 138 (137-145) mmol/L Potassium 4.3 (3.6-5.0) mmol/L Chloride 102.9 (98-107) mmol/L Carbon Dioxide 27 (22-30) mmol/L Anion Gap 12 mmol/L BUN 5 L (9-20) mg/dL Creatinine 0.8 (0.8-1.5) mg/dL Estimated GFR > 60 ml/min BUN/Creatinine Ratio 6 % Glucose 97 (75-100) mg/dL Calcium 9.5 (8.4-10.2) mg/dL Urine Color (Yellow) Urine Turbidity (Clear) Urine pH (5.0-7.0) Ur Specific [place] (1.003-1.030) Urine Protein (Negative) mg/dL Urine Glucose (UA) (Negative) mg/dL Urine Ketones (Negative) mg/dL Urine Blood (Negative) Urine Nitrite (Negative) Urine Bilirubin (Negative) Urine Urobilinogen (<2.0) mg/dL Ur Leukocyte Esterase (Negative) Urine WBC (Auto) (0.0-6.0) /HPF Urine RBC (Auto) (0.0-6.0) /HPF Urine Opiates Screen Urine Methadone Screen Ur Barbiturates Screen Ur Phencyclidine Scrn Ur Amphetamines Screen U Benzodiazepines Scrn [place] 0.8 (0.0-1.2) mmol/L Urine Cocaine Screen U Marijuana (THC) Screen Drugs of Abuse Note Plasma/Serum Alcohol < 0.01 (0-0.07) % - Medical Decision Making Patient awaiting mental health evaluation Patient is currently sedated Patient had autism and bipolar disorder and typically patient stays in the ER until his behavior improved and then he returns home. It is likely that he will not qualify for inpatient treatment given underlying autism. Will obtain opinion of mental health attic fans mechanic regarding appropriate disposition - Differential Diagnosis autism, bipolar, combative behavior, medication compliance Critical Care Time: No Critical care attestation.: If time is entered above; I have spent that time in minutes in the direct care of this critically ill patient, excluding procedure time. ED Disposition Clinical Impression: Autism, Bipolar disorder, Combative behavior, Medical clearance for psychiatric admission Disposition: DC/TX-65 PSY HOSP/PSY UNIT Is pt being admited?: No Condition: Stable Time of Disposition: 16:00
[2017-05-01] MEDS ORDERED: ATIVAN IV ONE (23:58)
[2017-05-01] MEDS ORDERED: ATIVAN ONE (23:59)
[2017-05-02] MEDS ORDERED: HALDOL ONE (05:25)
[2017-05-02] MEDS ORDERED: HALDOL IM ONE (05:31)
--- NOTE | 2017-05-02 16:41 | Consultation ---
History of Present Illness - Reason for Consult Consult date: 05/02/17 Reason for consult: psychiatric evaluation - Chief Complaint Chief complaint: non verbal - History of Present Psychiatric Illness The patient is a 21-year-old AA male presenting to [facility] for aggressive and combative behavior. Today patient is calm during the assessment. The patient isn 't able to participate during the interview. Per the record patient has a hx of autism. Two months ago, he was brought to [facility] by his guardians because he damaged property in their home. No gestures of SI/HI's. Staff report he was throwing his food. He was crawling on his bed and had emesis on his bed. He has home medications of Seroquel, Clonidine, Valium, and [place]. UDS is positive for benzos. [place] level is 0.8. Medications and Allergies Allergies Allergy/AdvReac Type Severity Reaction Status Date / Time No Known Allergies Allergy Verified 02/19/14 05:15 Home Medications Medication Instructions Recorded Confirmed Last Taken Type [place] Carbonate [Eskalith] 450 mg PO BID #60 capsule 08/17/16 03/05/17 Unknown Rx QUEtiapine [SEROquel] 200 mg PO QAM #30 tablet 08/17/16 03/05/17 Unknown Rx QUEtiapine [SEROquel] 300 mg PO QHS #30 tablet 08/17/16 03/05/17 Unknown Rx cloNIDine [Catapres] 0.1 mg PO DAILY #30 tablet 08/17/16 03/05/17 Unknown Rx cloNIDine [Catapres] 0.2 mg PO QHS #30 tablet 08/17/16 03/05/17 Unknown Rx Diazepam 10 mg PO 0800,1400 11/19/16 03/05/17 Unknown History Diazepam 20 mg PO QHS 11/19/16 03/05/17 Unknown History Olanzapine [OLANZapine] 0.5 mg PO TID 11/19/16 03/05/17 Unknown History Ibuprofen [Motrin] 600 mg PO Q8H PRN #15 tablet 03/25/17 Unknown Rx Sulfamethoxazole/Trimethoprim 1 each PO BID #14 tablet 03/25/17 Unknown Rx [Bactrim DS TAB] Past psychiatric history - Past Medical History Past Medical History: No medical history Past Surgical History: No surgical history - past Psychiatric treatment and history psychiatric treatment history: autism - Social History Social history: lives with family Mental Status Exam - Vital signs Last Vital Signs Temp 98.8 F 05/01/17 20:49 Pulse 76 05/02/17 10:12 Resp 18 05/02/17 10:12 BP 121/57 05/02/17 10:12 Pulse Ox 96 05/02/17 10:12 - Exam Affect: agitated Mood: congruent with affect Thought content: other (unable to assess) Speech: other (non verbal) Concentration: unable to pay attention Motor activity: restless Level of consciousness: alert Sleep Symptoms: Restless Interaction: apathetic Results Result Diagrams: 05/01/17 12:18 05/01/17 12:18 All other labs normal. Assessment and Plan Assessment and plan: Impression: Per the record, the patient has Autism. Unspecified Mood DO. He has a history of several ER visits for the same presentation UDS is positive for benzos Recommendation/Plan: Continue 1013 with placement to inpatient psy services. to prevent benzo withdrawal, given Ativan 2mg IM this afternoon. He had a dose early this am.
[2017-05-02] MEDS ORDERED: ATIVAN IM ONE (17:00)
[2017-05-02] MEDS ORDERED: ATIVAN IV ONE (21:10)
[2017-05-03] MEDS ORDERED: NON-FORMULARY (Diazepam [Diazepam] 10 MG) PO SCH (08:00)
[2017-05-03] MEDS: CATAPRES PO SCH (10:50)
[2017-05-03] MEDS: VALIUM PO SCH ×2 (10:50→15:28)
[2017-05-03] MEDS: ESKALITH PO SCH ×2 (10:51→22:00)
--- NOTE | 2017-05-03 10:51 | Progress Note ---
Subjective - Reason for Consult Consult date: 05/03/17 Reason for consult: Psychiatry Follow-up - Chief Complaint Chief complaint: "The patient is nonverbal" The patient is a 21-year-old AA male presenting to [facility] for aggressive and combative behavior. Today the patient is calm during the assessment. The patient is non verbal during the interview. Per collateral information from the his grandmother also his laboratory phlebotomist Ms Natividad Hines, she would like respite care for 2 weeks, because her just had surgery recently. She stated that she cannot take care of her along with her grandson at this time. Per the notes, the patient was given PRN medication and was placed in restraints overnight for behavioral disturbance. No gestures of SI/HI's. Mental Status Exam - Vital signs Last Vital Signs Temp 98.2 F 05/03/17 09:26 Pulse 74 05/03/17 09:26 Resp 16 05/03/17 09:26 BP 133/83 05/03/17 09:26 Pulse Ox 100 05/03/17 09:26 - Exam Narrative exam: The patient responses to his name non verbal No agitation observed Assessment and Plan Impression: Per the record, the patient has Autism. Unspecified Mood DO. Today the patient is calm during the assessment. Multiple ER for the same presentation in the past. UDS positive for benzos. DDx: R/O Bipolar DO, ADHD Recommendation/Plan: Continue 1013 with possible placement to inpatient psy services. Continue current home medication regimen, the patient's grandmother confirmed. She stated that her grandson takes Cogentin 0.5 mg PO BID for EPS Prevention. Discussed possible metabolic side effects of antipsychotics with the patient's grandmother. Informed Technical Manager, the patient's grandmother is requesting respite care.
[2017-05-03] MEDS: COGENTIN PO SCH ×2 (13:34→21:50)
[2017-05-03] MEDS ORDERED: DIAZEPAM 20 MG PO SCH (22:00)
[2017-05-03] MEDS ORDERED: VALIUM PO SCH (22:00)
[2017-05-03] MEDS ORDERED: CATAPRES PO SCH (22:00)
[2017-05-04] MEDS: ESKALITH PO SCH ×2 (03:40→11:46)
[2017-05-04 08:43] VITALS: BP 99/41
[2017-05-04] MEDS: VALIUM PO SCH ×2 (09:04→14:41)
[2017-05-04] MEDS: COGENTIN PO SCH (11:46)
[2017-05-04] MEDS: CATAPRES PO SCH (11:46)
--- NOTE | 2017-05-04 12:33 | Progress Note ---
Subjective - Reason for Consult Consult date: 05/04/17 Reason for consult: Psychiatry Follow-up - Chief Complaint Chief complaint: "The patient is nonverbal" The patient is a 21-year-old AA male presenting to [facility] for aggressive and combative behavior. Today the patient is calm during the assessment. The patient is non verbal during the interview. Per the staff, no behavioral disturbance today. The patient has been compliant with his medication. His grandmother Ms Natividad Hines at [phone] stated that the patient can return home once he is discharged. No gestures of SI/HI's. Mental Status Exam - Vital signs Last Vital Signs Temp 98.4 F 05/04/17 08:41 Pulse 61 05/04/17 08:41 Resp 16 05/04/17 08:41 BP 99/41 05/04/17 08:41 Pulse Ox 97 05/04/17 08:41 - Exam Narrative exam: The patient responses to his name non verbal No agitation observed Assessment and Plan Impression: Per the record, the patient has Autism. Unspecified Mood DO. Today the patient is calm during the assessment. Multiple ER for the same presentation in the past. UDS positive for benzos. DDx: R/O Bipolar DO, ADHD Recommendation/Plan: Rescind 1013. Continue current home medication regimen, the patient's grandmother confirmed. The patient does not need any prescriptions when discharged. Discussed possible metabolic side effects of antipsychotics with the patient's grandmother. The patient is seen by Dr Sood for outpatient psy services.
--- NOTE | 2017-05-04 19:15 | Emergency Department Report ---
Blank Doc - Documentation Documentation: I was asked to evaluate Mr. King villa for possible discharge. Patient was admitted here for combative behavior history of autism and bipolar disorder. Patient is being seen by psychiatric team and they advised patient can go home. Patient is calm, he denied suicidal or homicidal ideation. No visual or auditory hallucination. No danger to self or other one.
== END 2017-05-04 20:23 ==
LOC: ED 10:03 → EEVIPCON 10:03 → ED 05-04 20:23
DX: F31.9 Bipolar disorder, unspecified (principal); F91.8 Other conduct disorders; F84.0 Autistic disorder; J45.909 Unspecified asthma, uncomplicated
CPT/HCPCS: 36415; 80048; 80178; 80307; 81001; 85027; 96374; 99285; G0480; J1630; J2060; 80320

== ENCOUNTER 2017-09-30 14:09 | Emergency (ER) | payer MEDICAID ==
[2017-09-30 15:51] LABS: Basophils % (Auto) 0.7 % (0.0-1.8); Eosinophils % (Auto) 0.6 % (0.0-4.3); Hematocrit 38.8 % (35.5-45.6); Hemoglobin 12.5 gm/dl (11.8-15.2); Lymphocytes # (Auto) 1.1 K/mm3 (1.2-5.4); Lymphocytes % (Auto) 23.3 % (13.4-35.0); Mean Corpuscular HGB Conc 32 % (32-34); Mean Corpuscular Hemoglobin 21 pg (28-32); Mean Corpuscular Volume 66 fl (84-94); Monocytes # (Auto) 0.5 K/mm3 (0.0-0.8); Monocytes % (Auto) 9.7 % (0.0-7.3); Platelet Count 228 K/mm3 (140-440); Red Blood Count 5.86 M/mm3 (3.65-5.03); Red Cell Distribution Width 17.1 % (13.2-15.2)
[2017-09-30 16:12] LABS: Alanine Aminotransferase 9 units/L (7-56); Albumin 4.8 g/dL (3.9-5); BUN/Creatinine Ratio 7; Blood Urea Nitrogen 7 mg/dL (9-20); Calcium 10.1 mg/dL (8.4-10.2); Hemolysis Index 7
[2017-09-30] MEDS ORDERED: GEODON IM ONE (19:26)
--- NOTE | 2017-09-30 20:05 | Emergency Department Report ---
HPI - General Chief Complaint: Medical Clearance Time Seen by Provider: 09/30/17 15:28 - HPI HPI: 21-year-old [place] male presents to the emergency department, brought in by his grandmother/guardian, with the need for a mental health evaluation. The patient has a history of autism and bipolar disorder and allegedly has not been taking his medications. The grandmother left the hospital after the patient was brought back and therefore is not currently bedside. However allegedly the patient has been having some aggressive outbursts at home. The patient himself is currently a poor historian. ED Past Medical Hx - Past Medical History Hx Hypertension: No Hx CVA: No Hx Heart Attack/AMI: No Hx Congestive Heart Failure: No Hx Diabetes: No Hx Deep Vein Thrombosis: No Hx Pulmonary Embolism: No Hx GERD: No Hx Liver Disease: No Hx Renal Disease: No Hx Sickle Cell Disease: No Hx Arthritis: No Hx Headaches / Migraines: No Hx Seizures: No Hx Kidney Stones: No Hx Psychiatric Treatment: Yes (bipolar, autism) Hx Asthma: Yes Hx COPD: No Hx Tuberculosis: No Hx Dementia: No Hx HIV: No Additional medical history: autistic - Social History Smoking Status: Unknown if ever smoked - Medications Home Medications: Home Medications Medication Instructions Recorded Confirmed Last Taken Type [place] Carbonate [Eskalith] 450 mg PO BID #60 capsule 08/17/16 05/02/17 Unknown Rx QUEtiapine [SEROquel] 200 mg PO QAM #30 tablet 08/17/16 05/02/17 Unknown Rx QUEtiapine [SEROquel] 300 mg PO QHS #30 tablet 08/17/16 05/02/17 Unknown Rx cloNIDine [Catapres] 0.1 mg PO DAILY #30 tablet 08/17/16 05/02/17 Unknown Rx cloNIDine [Catapres] 0.2 mg PO QHS #30 tablet 08/17/16 05/02/17 Unknown Rx Diazepam 10 mg PO 0800,1400 11/19/16 05/02/17 Unknown History Diazepam 20 mg PO QHS 11/19/16 05/02/17 Unknown History Olanzapine [OLANZapine] 0.5 mg PO TID 11/19/16 05/02/17 Unknown History Ibuprofen [Motrin] 600 mg PO Q8H PRN #15 tablet 01/25/18 03/04/18 Unknown Rx Sulfamethoxazole/Trimethoprim 1 each PO BID #14 tablet 03/25/17 05/02/17 Unknown Rx [Bactrim DS TAB] ED Review of Systems ROS: Stated complaint: MENTAL Other details as noted in HPI Comment: Unobtainable due to pts medical conditions Physical Exam - Physical Exam Vital Signs: Vital Signs 09/30/17 15:18 Temperature 98.7 F Pulse Rate 80 Respiratory 18 Rate Blood Pressure 132/83 Blood Pressure 132/83 [Left] O2 Sat by Pulse 100 Oximetry Physical Exam: GENERAL: The patient is well-developed well-nourished. HENT: Normocephalic. Atraumatic. Patient has moist mucous membranes. EYES: Extraocular motions are intact. NECK: Supple. Trachea is midline. CHEST/LUNGS: Clear to auscultation. There is no respiratory distress noted. HEART/CARDIOVASCULAR: Regular. There is no tachycardia. There is no murmur. ABDOMEN: Abdomen is soft, nontender. Patient has normal bowel sounds. There is no abdominal distention. SKIN: Skin is warm and dry. NEURO/PSYCH: The patient is awake but slightly agitated. He is very difficult to redirect and not following any current commands. Patient is often yelling out. MUSCULOSKELETAL: There is no tenderness or deformity. There is no limitation range of motion. There is no evidence of acute injury. ED Course Vital Signs 09/30/17 15:18 Temperature 98.7 F Pulse Rate 80 Respiratory 18 Rate Blood Pressure 132/83 Blood Pressure 132/83 [Left] O2 Sat by Pulse 100 Oximetry ED Medical Decision Making - Lab Data Result diagrams: 09/30/17 15:41 09/30/17 15:41 - Medical Decision Making The patient's labs thus far been unremarkable but we are still waiting for a urinalysis and urine drug screen. Vital signs stable throughout his ED course. The psych sorter laundry articles attempted to do their assessment with this patient but secondary to his mental acuity and/or current condition was very difficult to do so. The patient is not a candidate to be a 1013 as he either has a history of autism or some type of mental retardation. The patient will be seen by the psychiatric team as well as social work to figure out the best form of treatment and safe dispositions. Critical Care Time: No Critical care attestation.: If time is entered above; I have spent that time in minutes in the direct care of this critically ill patient, excluding procedure time. ED Disposition Clinical Impression: Autism Bipolar disorder Qualifiers: Active/Remission status: remission status unspecified Qualified Code(s): F31.9 - Bipolar disorder, unspecified Disposition: DC/TX-70 ANOTHER TYPE HLTHCARE Is pt being admited?: No Condition: Stable Referrals: PRIMARY CARE, [Primary Care Provider] - 3-5 Days Time of Disposition: 10:18
[2017-10-01] MEDS ORDERED: HALDOL ONE ×2 (05:49→23:28)
[2017-10-01] MEDS ORDERED: VERSED IV ONE (05:49)
[2017-10-01] MEDS ORDERED: VERSED IV NR (05:50)
[2017-10-01] MEDS ORDERED: HALDOL IM ONE ×2 (05:50→23:35)
[2017-10-01] MEDS ORDERED: KETALAR IM ONE (06:25)
[2017-10-01] MEDS ORDERED: KETAMINE HCL IV ONE (06:31)
--- NOTE | 2017-10-01 13:22 | Consultation ---
History of Present Illness - Reason for Consult Consult date: 10/01/17 Reason for consult: Mental Health Evaluation Requesting physician: JANE ZAPATA - Chief Complaint Chief complaint: "The patient isn't verbal" - History of Present Psychiatric Illness 21-year-old AA male presents to the emergency department for aggressive outburst at home. This patient is known to me. Today the patient was calm during the assessment. The patient has a hx of Autism. He is nonverbal. Per the notes, the patient had a behavioral disturbance overnight. No gestures of SI/HI' s. Medications and Allergies Allergies Allergy/AdvReac Type Severity Reaction Status Date / Time No Known Allergies Allergy Verified 02/19/14 05:15 Home Medications Medication Instructions Recorded Confirmed Last Taken Type [place] Carbonate [Eskalith] 450 mg PO BID #60 capsule 08/17/16 05/02/17 Unknown Rx QUEtiapine [SEROquel] 200 mg PO QAM #30 tablet 08/17/16 05/02/17 Unknown Rx QUEtiapine [SEROquel] 300 mg PO QHS #30 tablet 08/17/16 05/02/17 Unknown Rx cloNIDine [Catapres] 0.1 mg PO DAILY #30 tablet 08/17/16 05/02/17 Unknown Rx cloNIDine [Catapres] 0.2 mg PO QHS #30 tablet 08/17/16 05/02/17 Unknown Rx Diazepam 10 mg PO 0800,1400 11/19/16 05/02/17 Unknown History Diazepam 20 mg PO QHS 11/19/16 05/02/17 Unknown History Olanzapine [OLANZapine] 0.5 mg PO TID 11/19/16 05/02/17 Unknown History Ibuprofen [Motrin] 600 mg PO Q8H PRN #15 tablet 03/25/17 05/02/17 Unknown Rx Sulfamethoxazole/Trimethoprim 1 each PO BID #14 tablet 03/25/17 05/02/17 Unknown Rx [Bactrim DS TAB] Past psychiatric history - Past Medical History Past Medical History: other (Unable to obtain) Past Surgical History: Other (Unable to obtain) - past Psychiatric treatment and history psychiatric treatment history: The patient has a hx of Autism. Unable to obtain a fam psy hx. - Social History Social history: lives with family Mental Status Exam - Vital signs Last Vital Signs Temp 98.7 F 10/01/17 10:00 Pulse 79 10/01/17 10:00 Resp 20 10/01/17 12:42 BP 149/96 10/01/17 10:00 Pulse Ox 98 10/01/17 10:00 - Exam Narrative exam: Unable to complete the MSE because of the patient's condition. Results Result Diagrams: 09/30/17 15:41 09/30/17 15:41 Abnormal lab results 09/30/17 09/30/17 09/30/17 Range/Units 15:41 15:41 15:41 RBC 5.86 H (3.65-5.03) M/mm3 MCV 66 L (84-94) fl MCH 21 L (28-32) pg RDW 17.1 H (13.2-15.2) % [place] % (Auto) 9.7 H (0.0-7.3) % Lymph # 1.1 L (1.2-5.4) K/mm3 BUN 7 L (9-20) mg/dL [place] 2.6 H* (0.0-1.2) mmol/L All other labs normal. Assessment and Plan Assessment and plan: Impression: Hx of Autism. Today the patient was calm during the assessment. The patient is known to be brought to the ER for outburst at his home. Recommendation/Plan: The patient does not meet criteria for a 1013. The patient was seen by Dr Sood for outpatient psy services per his previous ER visit.
[2017-10-01] MEDS ORDERED: WATER FOR INJ (PF) ONE (15:31)
[2017-10-01] MEDS ORDERED: GEODON IM ONE (15:31)
[2017-10-01] MEDS ORDERED: ZOFRAN ODT PO ONE (22:29)
[2017-10-01] MEDS ORDERED: ATIVAN ONE (23:29)
[2017-10-01] MEDS ORDERED: ATIVAN IM ONE (23:35)
--- NOTE | 2017-10-02 00:31 | XRay Report ---
FINAL REPORT PROCEDURE: XR HAND BILAT 2V TECHNIQUE: Bilateral hand radiographs, PA and lateral views of each hand. HISTORY: Bilat swelling and redness of the wrists COMPARISON: No prior studies are available for comparison. FINDINGS: RIGHT HAND: Fracture (s) and/or Dislocation(s): None. Alignment: Normal. Joint space(s): Normal. Soft tissues: Normal. Bone mineralization: Normal. Foreign bodies: None . LEFT HAND: Fracture (s) and/or Dislocation(s): None. Alignment: Normal. Joint space(s): Normal. Soft tissues: Normal. Bone mineralization: Normal. Foreign bodies: None . IMPRESSION: Normal Examination.
--- NOTE | 2017-10-03 07:47 | Emergency Department Report ---
Blank Doc - Documentation Documentation: Patient with autism was brought in by grandmother for behavior that was out of control, which she was unable to manage at home, having recently been hospitalized herself for TIA. Patient has been evaluated by psychiatric assessment team, it is felt stable for outpatient management, has not been confined involuntarily, and grandmother is here to take patient home. Grandmother reports that she has adequate medications, and although child is significantly autistic, making involuntary banking activities, grandmother reports that this is typical, and that he is generally compliant, and feels comfortable taking him home. On my examination, child is awake, alert, cooperative, has repetitive compulsive banging movements, falling against the wall from a standing position , but not in an injurious manner, without injury, and he is generally cooperative with dressing be performed by grandmother. Although patient is significantly impaired, he is stable, voices no complaints, grandmother reports this is typical activity, and child is stable for discharge. ED Disposition Clinical Impression: Autism Bipolar disorder Qualifiers: Active/Remission status: remission status unspecified Qualified Code(s): F31.9 - Bipolar disorder, unspecified Disposition: DC-01 TO HOME OR SELFCARE Is pt being admited?: No Does the pt Need Aspirin: No Condition: Stable Additional Instructions: Continue with prior medications as before Check with your doctor later this week. Referrals: PRIMARY CARE [Primary Care Provider] - 3-5 Days Time of Disposition: 07:48
[2017-10-03 07:56] VITALS: BP 150/83
== END 2017-10-03 07:56 | disposition home or self-care (01) ==
LOC: ED 14:09 → EEVIPCON 14:09 → ED 10-03 07:56
DX: F84.0 Autistic disorder (principal); F31.9 Bipolar disorder, unspecified; R22.33 Localized swelling, mass and lump, upper limb, bilateral; J45.909 Unspecified asthma, uncomplicated; Z79.899 Other long term (current) drug therapy
CPT/HCPCS: 36415; 73120; 80053; 80178; 85025; 96372; 96374; 99284; G0480; J1630; J2060; J2250; J3486; 80320; Q0162

== ENCOUNTER 2018-09-01 10:55 | Emergency (ER) | payer MEDICAID ==
[2018-09-01] MEDS ORDERED: KEPPRA 1,000 MG/NS 0.75% 100ML 1,000 MG/100 ML BAG IV ONE (11:12)
--- NOTE | 2018-09-01 11:20 | Emergency Department Report ---
HPI - General Chief Complaint: Seizure Time Seen by Provider: 09/01/18 11:04 - HPI HPI: Room 3 The patient is a 22-year-old male presenting with chief complaint seizure. The patient was lying in bed when he had a witnessed generalized tonic-clonic seiz ure lasting "minutes." Patient has no history of seizures. The patient lives in a residential but today was with his grandmother. Grandmother reports the patient had a fall while at his residential 7 days ago. She states the patient was taken to [facility] for evaluation and eventually discharged home. The patient has a history of autism and is nonverbal. Grandmother states the patient is back to his normal self currently Location: [See above] Duration: [See above] Quality: [See above] Severity: [See above] Modifying factors: [see above] Context: [see above] Mode of transportation: [not driving] ED Past Medical Hx - Past Medical History Hx Psychiatric Treatment: Yes (bipolar, autism) Hx Asthma: Yes Additional medical history: autistic - Surgical History Past Surgical History?: No Additional Surgical History: Herniorrhaphy - Family History Family history: other (maternal grandmother history of seizures) - Social History Smoking Status: Never Smoker Substance Use Type: None - Medications Home Medications: Home Medications Medication Instructions Recorded Confirmed Last Taken Type [place] Carbonate [Eskalith] 450 mg PO BID #60 capsule 08/17/16 05/02/17 Unknown Rx QUEtiapine [SEROquel] 200 mg PO QAM #30 tablet 08/17/16 05/02/17 Unknown Rx QUEtiapine [SEROquel] 300 mg PO QHS #30 tablet 08/17/16 05/02/17 Unknown Rx cloNIDine [Catapres] 0.1 mg PO DAILY #30 tablet 08/17/16 05/02/17 Unknown Rx cloNIDine [Catapres] 0.2 mg PO QHS #30 tablet 08/17/16 05/02/17 Unknown Rx OLANZapine 0.5 mg PO TID 11/19/16 05/02/17 Unknown History diazePAM [Diazepam] 10 mg PO 0800,1400 11/19/16 05/02/17 Unknown History diazePAM [Diazepam] 20 mg PO QHS 11/19/16 05/02/17 Unknown History Ibuprofen [Motrin] 600 mg PO Q8H PRN #15 tablet 03/25/17 05/02/17 Unknown Rx Sulfamethoxazole/Trimethoprim 1 each PO BID #14 tablet 03/25/17 05/02/17 Unknown Rx [Bactrim DS TAB] levETIRAcetam [Keppra TAB] 500 mg PO BID #60 tablet 09/01/18 Unknown Rx ED Review of Systems ROS: Stated complaint: POSSIBLE SEIZURE Other details as noted in HPI Comment: Unobtainable due to pts medical conditions (autistic/nonverbal) Physical Exam - Physical Exam Vital Signs: Vital Signs 09/01/18 11:08 Temperature 99 F Pulse Rate 71 Respiratory 17 Rate Blood Pressure 133/64 [Right] O2 Sat by Pulse 100 Oximetry Physical Exam: GENERAL: The patient is well-developed well-nourished male sitting on stretcher not appearing to be in acute distress. [] HEENT: Normocephalic. Atraumatic. Extraocular motions are intact. Patient has moist mucous membranes. OS subconjunctival hemorrhage and left periorbital ecchymosis from a fall 1 week ago NECK: Supple. Trachea midline CHEST/LUNGS: Clear to auscultation. There is no respiratory distress noted. HEART/CARDIOVASCULAR: Regular. There is no tachycardia. There is no gallop rub or murmur. ABDOMEN: Abdomen is soft, nontender. Patient has normal bowel sounds. There is no abdominal distention. SKIN: There is no rash. There is no edema. There is no diaphoresis. NEURO: The patient is awake and alert. The patient is cooperative. The patient has no focal neurologic deficits. Cranial nerves II through XII grossly intact MUSCULOSKELETAL: There is no limitation range of motion. ED Course Vital Signs 09/01/18 11:08 Temperature 99 F Pulse Rate 71 Respiratory 17 Rate Blood Pressure 133/64 [Right] O2 Sat by Pulse 100 Oximetry ED Medical Decision Making - Lab Data Result diagrams: 09/01/18 11:45 09/01/18 11:45 Laboratory Tests 09/01/18 09/01/18 09/01/18 11:45 11:45 11:45 WBC 6.3 RBC 5.53 H Hgb 11.8 Hct 37.2 MCV 67 L MCH 21 L MCHC 32 RDW 16.8 H Plt Count 263 Lymph % (Auto) 10.9 L [place] % (Auto) 6.3 Eos % (Auto) 0.2 Baso % (Auto) 0.5 Lymph # 0.7 L [place] # 0.4 Eos # 0.0 Baso # 0.0 Seg Neutrophils % 82.1 H Seg Neutrophils # 5.2 Sodium 139 Potassium 3.8 Chloride 102.4 Carbon Dioxide 25 Anion Gap 15 BUN 7 L Creatinine 1.1 Estimated GFR > 60 BUN/Creatinine Ratio 6 Glucose 119 H Calcium 10.1 Magnesium 2.30 Total Bilirubin 0.40 AST 22 ALT 16 Alkaline Phosphatase 81 Total Creatine Kinase 374 H Total Protein 7.7 Albumin 4.7 Albumin/Globulin Ratio 1.6 Bouton 09/01/18 11:45 WBC RBC Hgb Hct MCV MCH MCHC RDW Plt Count Lymph % (Auto) [place] % (Auto) Eos % (Auto) Baso % (Auto) Lymph # [place] # Eos # Baso # Seg Neutrophils % Seg Neutrophils # Sodium Potassium Chloride Carbon Dioxide Anion Gap BUN Creatinine Estimated GFR BUN/Creatinine Ratio Glucose Calcium Magnesium Total Bilirubin AST ALT Alkaline Phosphatase Total Creatine Kinase Total Protein Albumin Albumin/Globulin Ratio Bouton 0.9 - Radiology Data Radiology results: report reviewed (CT head), image reviewed (CT head) [address] [address] Cat Scan Report Signed Patient: SAV PERALES MR# : [id number] : 1995 Acct:[id number] Age/Sex: 22 / M ADM Date: 09/01/18 [facility] Ordering Physician: ALAN PARISH MD Date of Service: 09/01/18 Procedure(s): CT head/brain wo con Accession Number(s): [id number] cc: ALAN PARISH MD CT head/brain wo con INDICATION: new-onset seizure. TECHNIQUE: Routine CT head without contrast. All CT scans at this location are performed using CT dose reduction for ALARA by means of automated exposure control. COMPARISON: CT scan from 03/24/2017. FINDINGS: BRAIN / INTRACRANIAL CONTENTS: No acute hemorrhage, mass effect, midline shift, hydrocephalus, or acute, large territorial infarct. No chronic infarct or focal atrophy. Normal brain volume and ventricular/sulcal size for age. No significant white matter abnormality. Temporal lobes are normal. CRANIOCERVICAL JUNCTION: No significant abnormality. ORBITS: No significant abnormality of visualized orbits. SINUSES / MASTOIDS: No significant abnormality of the visualized paranasal sinuses or mastoid air cells. ADDITIONAL FINDINGS: As seen in the CT scan, focal area of scalp thickening is seen in the right frontal convexity. This has not unchanged. IMPRESSION: I do not see space taking lesion or acute parenchymal lesion in the brain; normal temporal lobes CT findings remain unchanged. Signer Name: Rolando Munoz MD Signed: 09/01/2018 12:08 PM Workstation Name: [id number] Transcribed By: BS Dictated By: Rolando Munoz MD Electronically Authenticated By: Rolando Munoz MD Signed Date/Time: 09/01/18 1208 DD/ 1204 TD/TT: - Differential Diagnosis intracranial hemorrhage, epilepsy, hyponatremia Critical care attestation.: If time is entered above; I have spent that time in minutes in the direct care of this critically ill patient, excluding procedure time. ED Disposition Clinical Impression: Seizure Disposition: DC-01 TO HOME OR SELFCARE Is pt being admited?: No Does the pt Need Aspirin: No Condition: Stable Instructions: Epilepsy (ED) Additional Instructions: Return to the emergency department immediately should you develop worsening symptoms, fever, inability to tolerate food or liquid or any other concerns. Prescriptions: levETIRAcetam [Keppra TAB] 500 mg PO BID #60 tablet Referrals: DAINA CALVIN MD [Staff Physician] - [facility] (Dr. Calvin is a neurologist. Please follow up with him for further evaluation) SAV NAVARRO DO [Staff Physician] - 3-5 Days (Dr. Navarro is a primary physician. Please follow up with him to be established as a patient) Time of Disposition: 12:33
[2018-09-01 11:56] LABS: Basophils % (Auto) 0.5 % (0.0-1.8); Eosinophils % (Auto) 0.2 % (0.0-4.3); Hematocrit 37.2 % (35.5-45.6); Hemoglobin 11.8 gm/dl (11.8-15.2); Lymphocytes # (Auto) 0.7 K/mm3 (1.2-5.4); Lymphocytes % (Auto) 10.9 % (13.4-35.0); Mean Corpuscular HGB Conc 32 % (32-34); Monocytes # (Auto) 0.4 K/mm3 (0.0-0.8); Monocytes % (Auto) 6.3 % (0.0-7.3); Platelet Count 263 K/mm3 (140-440); Red Blood Count 5.53 M/mm3 (3.65-5.03); Red Cell Distribution Width 16.8 % (13.2-15.2)
[2018-09-01 12:08] LABS: Mean Corpuscular Volume 67 fl (84-94)
--- NOTE | 2018-09-01 12:12 | Cat Scan Report ---
CT head/brain wo con INDICATION: new-onset seizure. TECHNIQUE: Routine CT head without contrast. All CT scans at this location are performed using CT dos e reduction for ALARA by means of automated exposure control. COMPARISON: CT scan from 03/24/2017. FINDINGS: BRAIN / INTRACRANIAL CONTENTS: No acute hemorrhage, mass effect, midline shift, hydrocephalus, or acu te, large territorial infarct. No chronic infarct or focal atrophy. Normal brain volume and ventricul ar/sulcal size for age. No significant white matter abnormality. Temporal lobes are normal. CRANIOCERVICAL JUNCTION: No significant abnormality. ORBITS: No significant abnormality of visualized orbits. SINUSES / MASTOIDS: No significant abnormality of the visualized paranasal sinuses or mastoid air shayna ls. ADDITIONAL FINDINGS: As seen in the CT scan, focal area of scalp thickening is seen in the right fron yaquelin convexity. This has not unchanged. IMPRESSION: I do not see space taking lesion or acute parenchymal lesion in the brain; normal temporal lobes CT findings remain unchanged. Signer Name: Rolando Beck MD Signed: 09/01/2018 12:08 PM Workstation Name: [id number]
[2018-09-01 12:19] LABS: Alanine Aminotransferase 16 units/L (7-56); Albumin 4.7 g/dL (3.9-5); BUN/Creatinine Ratio 6; Blood Urea Nitrogen 7 mg/dL (9-20); Calcium 10.1 mg/dL (8.4-10.2); Hemolysis Index 4
[2018-09-01 12:56] VITALS: BP 110/58
== END 2018-09-01 12:50 | disposition home or self-care (01) ==
LOC: ED 10:55
DX: R56.9 Unspecified convulsions (principal); F31.9 Bipolar disorder, unspecified; F84.0 Autistic disorder; Z98.890 Other specified postprocedural states; J45.909 Unspecified asthma, uncomplicated
CPT/HCPCS: 36415; 70450; 80053; 80178; 82550; 83735; 85025; 96374; 99285; J1953

== ENCOUNTER 2018-09-25 04:07 | Emergency (ER) | payer MEDICAID ==
--- NOTE | 2018-09-25 06:15 | Emergency Department Report ---
Suture/Staple Removal - HPI Chief Complaint: Laceration/Recheck/Suture Stated Complaint: PULLED SUTURES OUT Time Seen by Provider: 09/25/18 05:33 Wound Location: 20-year-old male sutures placed in the form completed days ago and began to ED Review of Systems ROS: Stated complaint: PULLED SUTURES OUT Other details as noted in HPI Comment: All other systems reviewed and negative ED Past Medical Hx - Past Medical History Previous Medical History?: Yes Hx Hypertension: No Hx CVA: No Hx Heart Attack/AMI: No Hx Congestive Heart Failure: No Hx Diabetes: No Hx Deep Vein Thrombosis: No Hx Pulmonary Embolism: No Hx GERD: No Hx Liver Disease: No Hx Renal Disease: No Hx Sickle Cell Disease: No Hx Arthritis: No Hx Headaches / Migraines: No Hx Seizures: No Hx Kidney Stones: No Hx Psychiatric Treatment: Yes (bipolar, autism) Hx Asthma: Yes Hx COPD: No Hx Tuberculosis: No Hx Dementia: No Hx HIV: No Additional medical history: autistic - Surgical History Past Surgical History?: Yes Additional Surgical History: Herniorrhaphy - Social History Smoking Status: Never Smoker Substance Use Type: None - Medications Home Medications: Home Medications Medication Instructions Recorded Confirmed Last Taken Type [place] Carbonate [Eskalith] 450 mg PO BID #60 capsule 08/17/16 05/02/17 Unknown Rx QUEtiapine [SEROquel] 200 mg PO QAM #30 tablet 08/17/16 05/02/17 Unknown Rx QUEtiapine [SEROquel] 300 mg PO QHS #30 tablet 08/17/16 05/02/17 Unknown Rx cloNIDine [Catapres] 0.1 mg PO DAILY #30 tablet 08/17/16 05/02/17 Unknown Rx cloNIDine [Catapres] 0.2 mg PO QHS #30 tablet 08/17/16 05/02/17 Unknown Rx OLANZapine 0.5 mg PO TID 11/19/16 05/02/17 Unknown History diazePAM [Diazepam] 10 mg PO 0800,1400 11/19/16 05/02/17 Unknown History diazePAM [Diazepam] 20 mg PO QHS 11/19/16 05/02/17 Unknown History Ibuprofen [Motrin] 600 mg PO Q8H PRN #15 tablet 03/25/17 05/02/17 Unknown Rx Sulfamethoxazole/Trimethoprim 1 each PO BID #14 tablet 03/25/17 05/02/17 Unknown Rx [Bactrim DS TAB] levETIRAcetam [Keppra TAB] 500 mg PO BID #60 tablet 09/01/18 Unknown Rx Suture Removal Exam - Exam General: Vital signs noted. No distress. Alert and acting appropriately. Wound: Yes Wound Dehiscence (left forearm), No Pathologic Erythema, No Tenderness, No Drainage, No Pus Other Systems: All other systems reviewed and are unremarkable. ED Course Vital Signs 09/25/18 04:19 Temperature 98.6 F Pulse Rate 94 H Respiratory 22 Rate Blood Pressure 122/80 O2 Sat by Pulse 99 Oximetry Critical care attestation.: If time is entered above; I have spent that time in minutes in the direct care of this critically ill patient, excluding procedure time. ED Disposition Clinical Impression: Wound dehiscence Disposition: DC-01 TO HOME OR SELFCARE Is pt being admited?: No Does the pt Need Aspirin: No Condition: Stable Instructions: Wound Healing and Your Diet (ED), Wound Dehiscence (ED) Referrals: CHEKO FARRELL MD [Primary Care Provider] - 3-5 Days
[2018-09-25 06:35] VITALS: BP 131/75
== END 2018-09-25 06:32 | disposition home or self-care (01) ==
LOC: ED 04:07
DX: T81.30XA Disruption of wound, unspecified, initial encounter (principal); J45.909 Unspecified asthma, uncomplicated; F31.9 Bipolar disorder, unspecified; F84.0 Autistic disorder; Z79.899 Other long term (current) drug therapy; Z98.890 Other specified postprocedural states; Y92.89 Other specified places as the place of occurrence of the external cause
CPT/HCPCS: 99282